=== PATIENT | female | born 1955 | race Caucasian/White ===

== ENCOUNTER → 2017-09-23 | Outpatient (CLI) | payer OTHER ==
[~2017-09-23] MED LIST: SIMV20TA2 PO
--- NOTE | 2017-09-23 14:30 | MAMMOGRAPHY REPORT ---
BILATERAL DIGITAL SCREENING MAMMOGRAM TOMOSYNTHESIS WITH CAD: 09/23/2017 CLINICAL HISTORY: Routine screening examination. TECHNIQUE: Breast tomosynthesis in addition to standard 2D mammography was performed. Current study was also evaluated with a Computer Aided Detection (CAD) system. COMPARISON: Comparison is made to exams dated: 06/04/2016 mammogram, 05/30/2015 mammogram, 02/25/2014 m ammogram, 02/15/2013 mammogram, 02/12/2012 mammogram, and 02/05/2011 mammogram - [facility] nter. BREAST COMPOSITION: The tissue of both breasts is heterogeneously dense, which may obscure small mas ses. FINDINGS: An asymmetry in the superior left breast on the MLO view appears stable on all available pr ior mammograms dating back to at least 2009, therefore likely benign. There are scattered benign-mila earing punctate microcalcifications in the breasts. No new suspicious mass, architectural distortion or cluster of microcalcifications is seen. IMPRESSION: ACR BI-RADS CATEGORY 1: NEGATIVE There is no mammographic evidence of malignancy. A 1 year screening mammogram is recommended. The pa tient will receive written notification of the results. Approximately 10% of breast cancers are not detected with mammography. A negative mammographic report should not delay biopsy if a clinically suggestive mass is present. Jonna Sauceda M.D. ay/:09/23/2017 13:27:48 Staffing Assistant: Mikayla JAEGER)(Jorge L), [facility] letter sent: Normal 1/2 BI-RADS Code: ACR BI-RADS Category 1: Negative
== END | disposition home or self-care (01) ==
LOC: C.MAMM 08:48
PROVIDERS: ATTEND Physician Assistant
DX: Z12.31 Encounter for screening mammogram for malignant neoplasm of breast (principal)

== ENCOUNTER 2020-09-23 00:38 | Inpatient (IN) ==
[2020-09-23] MEDS ORDERED: SODIUM CHLORIDE 0.9% 1000ML 1,000 ML IV STA (00:59)
[2020-09-23] MEDS ORDERED: SODIUM CHLORIDE 0.9% 500 ML IV SCH (01:00)
[2020-09-23 01:20] LABS: Hematocrit (blood only) 36.3 % (37-47); Hemoglobin 12.1 g/dL (12.0-16.0); Immature Granulocytes # (auto) 0.01 K/uL (0.00-0.02); Immature Granulocytes % (auto) 0.2 %; Lymphocytes # (auto) 0.39 K/uL (1.2-3.4); Lymphocytes % (auto) 6.2 %; Mean Corpuscular Hemoglobin 26.8 pg (25-34); Mean Corpuscular Hgb Conc 33.3 g/dL (32-36); Mean Corpuscular Volume 80.5 fL (80-100); Mean Platelet Volume 9.7 fL (7.4-10.4); Monocytes # (auto) 0.22 K/uL (0.11-0.59); Monocytes % (auto) 3.5 %; Neutrophils # (auto) 5.67 K/uL (1.4-6.5); Neutrophils % (auto) 90.1 %; Platelet Count 144 K/uL (130-400); RDW Coefficient of Variation 14.8 % (11.5-14.5); RDW Standard Deviation 43.5 fL (36.4-46.3); Red Blood Count 4.51 M/uL (4.2-5.4); White Blood Count 6.29 K/uL (4.8-10.8)
[2020-09-23 01:31] LABS: INR 1.1 (0.9-1.1); Partial Thromboplastin Ratio 1.1; Partial Thromboplastin Time 31.5 Seconds (21.0-31.0); Prothrombin Time 11.2 Seconds (9.0-12.0)
[2020-09-23 01:39] LABS: Alanine Aminotransferase 28 U/L (12-78); Albumin Level 3.4 gm/dl (3.4-5.0); Aspartate Aminotransferase 33 U/L (15-37); BUN Creatinine Ratio 20.2 (10-20); Blood Urea Nitrogen 24 mg/dl (7-18); Calcium 8.1 mg/dl (8.5-10.1); Carbon Dioxide 27 mmol/L (21-32); Chloride 102 mmol/L (98-107); Creatinine Clr Calc Pharmacy 51.4 ml/min; Est GFR (African American) 54.7; Est GFR (Non-African American) 47.2; Glucose 155 mg/dl (70-99); Magnesium 1.9 mg/dl (1.8-2.4); Potassium 2.8 mmol/L (3.5-5.1); Sodium 135 mmol/L (136-145)
[2020-09-23] MEDS ORDERED: POTASSIUM CHLORIDE / WTR 10 MEQ/100 ML PLCT IV ONE (01:41)
[2020-09-23] MEDS ORDERED: POTASSIUM CHLORIDE CRTAB 20 MEQ TABCR PO STA ×2 (01:41→03:31)
[2020-09-23 01:45] LABS: Albumin Globulin Ratio 0.8 (0.9-2); Alkaline Phosphatase 48 U/L (45-117); Bilirubin,Total 0.8 mg/dl (0.2-1); Globulin 4.1 gm/dl (2.5-4.0); Total Protein 7.5 gm/dl (6.4-8.2); Troponin I < 0.015 ng/ml (0-0.045)
[2020-09-23 01:53] LABS: iSTAT Creatinine 1.1 mg/dl (0.6-1.3); iSTAT Hemoglobin 12.2 g/dl (12.0-16.0); iSTAT Ionized Calcium 1.05 mmol/l (1.12-1.32); iSTAT Potassium 2.8 mmol/L (3.3-5.0)
[2020-09-23] MEDS ORDERED: fentaNYL citrate 100 MCG/2 ML VIAL ONE (02:08)
[2020-09-23] MEDS ORDERED: DEXAMETHASONE SOD INJ 10 MG/ML VIAL IV ONE (02:14)
[2020-09-23] MEDS ORDERED: ONDANSETRON INJ 2 MG/ML 2 ML VIAL IV STA (02:14)
[2020-09-23] MEDS ORDERED: fentaNYL citrate 100 MCG/2 ML VIAL IV STA (02:14)
[2020-09-23 02:29] LABS: Influenza A virus by PCR Negative (Neg); Influenza B virus by PCR Negative (Neg); RSV by PCR Negative (Neg)
[2020-09-23 02:31] LABS: SARS CoV2 RNA(COVID-19) InHosp POSITIVE (Negative)
[2020-09-23] MEDS ORDERED: OPTIRAY 320 125ml IV ONE (03:17)
[2020-09-23] MEDS ORDERED: ALBUTEROL HFA 8 GM INHALER INH STA (03:48)
[2020-09-23] MEDS ORDERED: MAGNESIUM SULFATE / D5W 1 GM/100 ML BAG IV STA (03:48)
[2020-09-23] MEDS ORDERED: AMPICILLIN/SULBACTAM SOD 3,000 MG in 0.9 % SODIUM CHLORIDE 100 ML IV STA (04:14)
--- NOTE | 2020-09-23 04:17 | History & Physical Report ---
Date of Service September 23, 2020 Assessment & Plan (1) Acute hypoxemic respiratory failure due to COVID-19: Multifactorial : Aspiration pneumonia severe COVID-19 pneumonia No overt sepsis for now Syncope possibly from orthostasis from poor p.o. intake Rule out cardiac dysfunction HTN, stable Hypokalemia secondary to poor p.o. intake, home diuretic Rx Hyperglycemia rule out DM Medical telemetry Supplemental O2 Baseline ABG Unasyn, swallow eval, aspiration precautions for aspiration pneumonia Decadron and Remdesivir for severe COVID-19 pneumonia (Patient was counseled regarding potential adverse effects from Remdesivir therapy and provided with patient education sheet. Patient also agreeable to convalescent plasma if warranted.) May need Pulmonary consultation if without improvement. Check orthostatic vitals TTE RE syncope Replace potassium, hold home diuretic for now Check hemoglobin A1c DVT prophylaxis per Lovenox subcu Full code Total critical care time was 40 minutes. Text document was generated using [employer] voice recognition software. It may contain grammatical or spelling errors. Kindly contact undersigned for clarification of any documentation item in question. History of Present Illness Chief Complaint: Syncope, fall, rib pain, shortness of breath Primary Care Provider: Sonyn Causey MD History obtained from patient and records. Medical history significant for hypertension, hyperlipidemia. 2 days history of nausea, fatigue symptoms followed by cough symptoms productive of clear sputum. Cough symptoms noted after food/water intake. Fever and chills, poor appetite. 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 Syncopal episodes today without headache causing patient to fall on her right side. Denies head trauma. Subsequent pleuritic right-sided chest pain with shortness of breath. O2 sats noted to be 80s on room air at the ER. Decadron given for COVID-19 pneumonia. Medical History as above Surgical History : Eye surgery, cholecystectomy, IUD placement Family History : Leukemia, DM Personal/Social history : Non-smoker, no EtOH intake, grocery employee Allergies Allergy/AdvReac Type Severity Reaction Status Date / Time No Known Allergies Allergy Unknown Verified 09/23/20 02:22 Home Medications Medication Instructions Recorded Confirmed Type alendronate 70 mg PO WK 09/23/20 09/23/20 History cholecalciferol (vitamin D3) 50 mcg PO DAILY 09/23/20 09/23/20 History [Vitamin D3] [id number] 1 ea PO DIRECTED PRN 09/23/20 09/23/20 History [Mucinex Sinus-Max D-N (diphen)] hydrochlorothiazide 25 mg PO DAILY 09/23/20 09/23/20 History lisinopril 30 mg PO DAILY 09/23/20 09/23/20 History loratadine [Claritin] 10 mg PO DAILY 09/23/20 09/23/20 History omeprazole 20 mg PO DAILY 09/23/20 09/23/20 History oxybutynin chloride 10 mg PO BID 09/23/20 09/23/20 History simvastatin 40 mg PO DAILY 09/23/20 09/23/20 History Past Med/Surg History Social History Smoking Status: Never smoker Hx Alcohol Use: No Hx Substance Use: No Preferred Language: Cuban Communication Ability: Effective 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 Beliefs That Will Affect Care: None Current Living Situation: Spouse Other Information That Helps Us Care for You: No Feels Safe at Home: Yes Safety Concerns: Feels Safe At This Time Assistive Devices: Denture - Upper, Denture - Lower and Glasses Review of Systems Review of Systems: As per HPI, all 10 systems reviewed, all other ROS negative Physical Exam Physical Exam: GENERAL: wane, ill looking, no respiratory distress SKIN: Normal color, warm HEENT: Bespectacled, pink palpebral conjunctivae, no ptosis, dry buccal mucosa, O2 mask in place NECK : Supple, no tenderness CHEST : Decreased breath sounds, occasional expiratory wheezes, minimal tenderness right chest wall HEART : RRR, no obvious murmurs ABDOMEN: Some distention, nontender EXTREMITIES : No LE swelling/tenderness, no other conspicuous deformities noted NEUROLOGIC : Coherent, no facial asymmetry, no other gross focality Results & Data Results & Data ([facility]) Vital Signs (Past 12 Hours) Vital Signs Temp Pulse Resp BP Pulse Ox 09/23/20 02:30 75 20 136/74 95 09/23/20 02:17 81 24 131/72 93 09/23/20 01:45 86 24 91 09/23/20 01:30 83 20 95 09/23/20 01:21 82 L 09/23/20 01:15 85 22 129/76 92 09/23/20 01:11 37.3 C 85 20 129/76 82 L 09/23/20 01:00 86 21 09/23/20 00:52 83 23 97 09/23/20 00:48 85 24 120/71 91 Laboratory Results Laboratory Results WBC 6.29 K/uL (4.8-10.8) 09/23/20 01:00 RBC 4.51 M/uL (4.2-5.4) 09/23/20 01:00 Hgb 12.1 g/dL (12.0-16.0) 09/23/20 01:00 POC Hgb 12.2 g/dl (12.0-16.0) 09/23/20 01:26 Hct 36.3 % (37-47) L 09/23/20 01:00 POC Hct 36 % (37-47) L 09/23/20 01:26 MCV 80.5 fL (80-100) 09/23/20 01:00 MCH 26.8 pg (25-34) 09/23/20 01:00 MCHC 33.3 g/dL (32-36) 09/23/20 01:00 RDW Std Deviation 43.5 fL (36.4-46.3) 09/23/20 01:00 RDW Coeff of Niru 14.8 % (11.5-14.5) H 09/23/20 01:00 Plt Count 144 K/uL (130-400) 09/23/20 01:00 MPV 9.7 fL (7.4-10.4) 09/23/20 01:00 Immature Gran % (Auto) 0.2 % 09/23/20 01:00 Neut % (Auto) 90.1 % 09/23/20 01:00 Lymph % (Auto) 6.2 % 09/23/20 01:00 Wagoner % (Auto) 3.5 % 09/23/20 01:00 Eos % (Auto) 0.0 % 09/23/20 01:00 Baso % (Auto) 0.0 % 09/23/20 01:00 Neut # (Auto) 5.67 K/uL (1.4-6.5) 09/23/20 01:00 Lymph # (Auto) 0.39 K/uL (1.2-3.4) L 09/23/20 01:00 Wagoner # (Auto) 0.22 K/uL (0.11-0.59) 09/23/20 01:00 Eos # (Auto) 0.00 K/uL (0-0.5) 09/23/20 01:00 Baso # (Auto) 0.00 K/uL (0-0.2) 09/23/20 01:00 Immature Gran # (Auto) 0.01 K/uL (0.00-0.02) 09/23/20 01:00 PT 11.2 Seconds (9.0-12.0) 09/23/20 01:00 INR 1.1 (0.9-1.1) 09/23/20 01:00 APTT 31.5 Seconds (21.0-31.0) H 09/23/20 01:00 PTT Ratio 1.1 09/23/20 01:00 POC Sodium 138 mmol/L (135-144) 09/23/20 01:26 Sodium 135 mmol/L (136-145) L 09/23/20 01:00 POC Potassium 2.8 mmol/L (3.3-5.0) L 09/23/20 01:26 Potassium 2.8 mmol/L (3.5-5.1) L 09/23/20 01:00 POC Chloride 99 mmol/L (101-112) L 09/23/20 01:26 Chloride 102 mmol/L (98-107) 09/23/20 01:00 Carbon Dioxide 27 mmol/L (21-32) 09/23/20 01:00 POC Total CO2 25 mmol/L (24-31) 09/23/20 01:26 Anion Gap 6.0 (3-11) 09/23/20 01:00 POC Anion Gap 17.0 mmol/L (16-25) 09/23/20 01:26 POC BUN 22 mg/dl (7-18) H 09/23/20 01:26 BUN 24 mg/dl (7-18) H 09/23/20 01:00 Creatinine 1.19 mg/dl (0.6-1.2) 09/23/20 01:00 POC Creatinine 1.1 mg/dl (0.6-1.3) 09/23/20 01:26 Est Cr Clr Drug Dosing 51.4 ml/min 09/23/20 01:00 Est GFR ( Amer) 54.7 09/23/20 01:00 Est GFR (Non-Af Amer) 47.2 09/23/20 01:00 BUN/Creatinine Ratio 20.2 (10-20) H 09/23/20 01:00 Glucose 155 mg/dl (70-99) H 09/23/20 01:00 POC Glucose (other) 159 mg/dl (70-99) H 09/23/20 01:26 Lactate 1.7 mmol/L (0.4-2.0) 09/23/20 01:00 Calcium 8.1 mg/dl (8.5-10.1) L 09/23/20 01:00 POC Ioniz Calcium Shante 1.05 mmol/l (1.12-1.32) L 09/23/20 01:26 Magnesium 1.9 mg/dl (1.8-2.4) 09/23/20 01:00 Total Bilirubin 0.8 mg/dl (0.2-1) 09/23/20 01:00 AST 33 U/L (15-37) 09/23/20 01:00 ALT 28 U/L (12-78) 09/23/20 01:00 Alkaline Phosphatase 48 U/L (45-117) 09/23/20 01:00 Troponin I < 0.015 ng/ml (0-0.045) 09/23/20 01:00 Total Protein 7.5 gm/dl (6.4-8.2) 09/23/20 01:00 Albumin 3.4 gm/dl (3.4-5.0) 09/23/20 01:00 Globulin 4.1 gm/dl (2.5-4.0) H 09/23/20 01:00 Albumin/Globulin Ratio 0.8 (0.9-2) L 09/23/20 01:00 COVID-19 Eval Order CovFluRsv at [facility] 09/23/20 01:33 SARS-CoV-2 (PCR) POSITIVE (Negative) A* 09/23/20 01:33 Influenza Type A (PCR) Negative (Neg) 09/23/20 01:33 Influenza Type B (PCR) Negative (Neg) 09/23/20 01:33 RSV (RT-PCR) Negative (Neg) 09/23/20 01:[address] chest initial read: Mild atherosclerotic changes thoracic aorta. No pulmonary embolism. Small hiatal hernia. Airspace opacities in both lower lobes suggesting aspiration or pneumonia. EKG as per my interpretation: Rate 80, NSR, normal axis, no ischemia
[2020-09-23] MEDS ORDERED: POTASSIUM CHLORIDE 40 MEQ in SODIUM CHLORIDE 0.9% 1000ML 1,000 ML IV STA (04:21)
[2020-09-23 04:37] LABS: HCO3 ABG 21 mmol/L (19-24); Oxygen Saturation ABG 94.7 % (90-95); PCO2 ABG 32 mmHg (35-46); PO2 ABG 74 mmHg (80-95); pH ABG 7.43 (7.35-7.45)
[2020-09-23 04:47] LABS: Allen Test POS (Pos)
[2020-09-23] MEDS ORDERED: PROMETHAZINE HCL 12.5 MG in SODIUM CHLORIDE 0.9% 50 ML IV PRN (05:13)
[2020-09-23] MEDS ORDERED: SODIUM CHLORIDE 0.9% 10ML FLUSH IV SCH (05:45)
[2020-09-23] MEDS: POTASSIUM CHLORIDE / WTR 10 MEQ/100 ML PLCT IV SCH ×7 (06:20→15:31)
[2020-09-23] MEDS: REMDESIVIR 200 MG in SODIUM CHLORIDE 0.9% 210 ML IV ONE ×2 (06:20→07:32)
[2020-09-23] MEDS ORDERED: ALBUTEROL HFA 8 GM INHALER INH SCH (07:00)
[2020-09-23 07:27] LABS: Estimated Average Glucose 126 mg/dl
[2020-09-23] MEDS: SODIUM CHLORIDE 0.9% 10ML FLUSH IV SCH (07:37)
[2020-09-23] MEDS ORDERED: POTASSIUM CHLORIDE 40 MEQ in SODIUM CHLORIDE 0.9% 1000ML 1,000 ML IV SCH (08:00)
--- NOTE | 2020-09-23 08:12 | XRay Report ---
XR chest 1V portable CLINICAL HISTORY: low o2 COMPARISON STUDY: Chest radiograph and chest CT September 23, 2020. FINDINGS: Dense left basilar opacity with volume loss has increased. There is also right basilar opac ity. Mild cardiomegaly is noted. There is no evidence for pulmonary edema. No pneumothorax or pleural effusion is noted. IMPRESSION: 1. Increase in dense left basilar opacity with volume loss. This could reflect pneumonia or atelectas is. 2. Persistent right basilar opacity. ACT 112: Negative or not required by law. Electronically signed by: Dean Vincent M.D. 09/23/2020 8:10 AM
[2020-09-23 08:37] LABS: Allen Test Pos (Pos); Base Excess ABG -1.5 mEq/L (-9-1.8); HCO3 ABG 22 mmol/L (19-24); PCO2 ABG 31 mmHg (35-46); PO2 ABG 161 mmHg (80-95); pH ABG 7.46 (7.35-7.45)
--- NOTE | 2020-09-23 08:47 | CT Scan Report ---
CT ANGIOGRAPHY OF THE CHEST, PULMONARY EMBOLUS PROTOCOL CLINICAL HISTORY: Hypoxia. Left-sided chest pain. Evaluate for pulmonary embolus. COMPARISON STUDY: Chest radiograph September 23, 2020 and April 18, 2011. TECHNIQUE: Following IV administration of 119 mL of Optiray-320, helical axial images of the chest we re obtained utilizing the pulmonary embolus protocol. Maximal intensity projections and sagittal and coronal reformats were viewed on an independent 3D workstation. IV contrast was administered withou t complication. Automated exposure control was utilized for the study. A dose lowering technique wa s utilized adhering to the principles of ALARA. CT DOSE: 459.05 mGycm FINDINGS: No pulmonary emboli are identified. There is no thoracic aortic dissection. Mild cardiomeg mireille is noted. Mildly enlarged subcarinal lymph node is noted. There is no pneumothorax. There are tra ce bilateral pleural effusions. Extensive secretions within the left mainstem bronchus and left lower lobe segmental bronchi are noted. There is extensive left lower lobe consolidation. There is moderat e right lower lobe consolidation. Left lung volume loss is noted. Mild interlobular septal thickening within the right lung is noted. There may be relative oligemia of the left lung. Central pulmonary a rteries are mildly dilated. Note is made of mildly displaced fractures of the anterior right third ri b and the posterior right 10th and 11th ribs. These fractures are probably subacute. A small hiatal h ernia is present. Note is made of a partially visualized prominent gastrohepatic ligament lymph node. IMPRESSION: 1. No pulmonary emboli identified. 2. Extensive secretions within the distal left mainstem bronchus and throughout the segmental bronchi of the left lower lobe. Extensive left lower lobe and moderate right lower lobe consolidation. The f indings may reflect aspiration pneumonitis or pneumonia. Left lung volume loss. Trace bilateral pleur al effusions. 3. Mildly displaced fractures of the right third, 10th and 11th ribs, likely subacute. No pneumothora x. 4. Mildly enlarged subcarinal lymph node. This may be reactive however, a follow up chest CT in 3 mon th is recommended. ACT 112: Negative or not required by law. Electronically signed by: Dean Vincent M.D. 09/23/2020 8:45 AM
[2020-09-23] MEDS ORDERED: AMPICILLIN/SULBACTAM CONSULT ACTIVE PRN (09:00)
[2020-09-23] MEDS ORDERED: ALBUTEROL HFA 8 GM INHALER INH PRN (09:13)
--- NOTE | 2020-09-23 09:29 | XRay Report ---
XR chest 1V portable CLINICAL HISTORY: Dyspnea COMPARISON STUDY: Chest radiograph April 18, 2011. FINDINGS: Mild left lung volume loss is noted. There is no pneumothorax. Bibasilar airspace opacity, greater on the left, is noted. Cardiac size is at the upper limits of normal. IMPRESSION: Bibasilar consolidation, greater on the left. The appearance favors pneumonia or aspirat ion. Left lung volume loss. ACT 112: Negative or not required by law. Electronically signed by: Dean Vincent M.D. 09/23/2020 9:27 AM
[2020-09-23 09:42] LABS: Appearance Urine Turbid (Clear); Bacteria Urine Automated 1+ (Negative); Bilirubin Urine Negative (Negative); Blood Urine 1+ (Negative); Color Urine Yellow; Epithelial Cell Urine Auto >30 /lpf (0-5); Glucose Urine UA Negative (Negative); Ketones Urine Negative (Negative); Leukocyte Esterase Urine 2+ (Negative); Nitrite Urine Positive (Negative); Protein Urine 1+ (Negative); Specific Gravity Urine > 1.045 (1.000-1.030); Urobilinogen Urine Negative (Negative); WBC Urine Automated >30 /hpf (0-5)
[2020-09-23] MEDS: ENOXAPARIN INJ 40 MG/0.4 ML SYR SQ SCH (11:01)
[2020-09-23] MEDS: PANTOprazole 40 MG TAB PO SCH (11:01)
[2020-09-23] MEDS: OXYBUTYNIN CHLORIDE XL 5 MG TABCR PO SCH ×2 (11:01→20:29)
[2020-09-23] MEDS: lisinopril 10 MG TAB PO SCH (11:02)
[2020-09-23] MEDS: LORATADINE 10 MG TAB PO SCH (11:02)
[2020-09-23] MEDS: SIMVASTATIN 40 MG TAB PO SCH (11:02)
[2020-09-23] MEDS: AMPICILLIN/SULBACTAM SOD 3,000 MG in 0.9 % SODIUM CHLORIDE 100 ML IV SCH ×2 (11:34→17:46)
--- NOTE | 2020-09-23 12:17 | Pulmonary Consultation ---
Date of Consultation September 23, 2020 Assessment & Plan (1) Acute hypoxemic respiratory failure due to COVID-19: (2) Abnormal CT scan of lung: (3) Hypoxemia: (4) Aspiration into airway: Impression: 65-year-old female without prior history presents with hypoxemic respiratory failure and diffuse bibasilar consolidation and a positive Covid test. Her CT scan demonstrated a significantly patulous esophagus and possible aspiration would be in the differential. Her Covid test was elevated. Recommendations: 1. Hypoxemic respiratory failure: The patient has dense bibasilar dependent consolidations. She is an excellent candidate for proning as this would improve her VQ mismatch. I assisted the patient in proning. We were able to see almost instantaneous improvement in her oxygen saturations up into the high 90% range while on high flow. I would recommend that she stay prone is much as possible and return to the supine position for nursing care and meals. 2. It is unclear how much of this represents Covid pneumonia and how much represents potential atelectasis in aspiration event. Her procalcitonin was elevated so I would agree with antibiotics empirically. She has been initiated on dexamethasone, remdesivir, and consented for convalescent plasma. She is certainly within the window for these interventions based on her time to presentation. We will see how she responds over time. 3. Severely dilated esophagus fluid-filled, aspiration precautions should be put in place. Patient certainly at risk for repeat aspiration given the prone positioning however the benefits would outweigh the risk currently. GI consultation at some point may be reasonable, but would hold off until the patient's respiratory status is significantly improved. We will continue to follow this patient closely. Hopefully prone positioning will result in significant improvement in her VQ mismatch. Do not think she necessitates intensive care unit at this point time but she certainly at risk for deterioration. A total of 45 minutes critical care time managing severe hypoxemic respiratory failure in a patient at risk for clinical deterioration and potential . History of Present Illness Attending Physician: Oliver Cummings MD History of Present Illness Asked by hospitalist to evaluate this patient with progressive hypoxemic respiratory failure, possible pneumonia, Questionable aspiration event, and COVID-19 infection. History is obtained from discussion with the patient as well as review the electronic medical record and discussion with the hospitalist. Patient is a 65-year-old female without prior pulmonary history who was seen in the emergency room this morning. She reports 2 days of nausea and fatigue with clear cough. She does relate some coughing associated with eating and drinking but has never had GI evaluation previously. She does have a history of reflux. 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 She felt weak and had a syncopal episode hitting her right side which resulted in some bruising. In the emergency room she was noted to be significantly hypoxemic. She was initiated on Decadron and transitioned to high flow oxygen therapy and admitted to the hospitalist service. The patient has had an escalation in her oxygen requirement. She is currently on 30 L/min at 70%. She is hemodynamically stable. She is a lifelong non- smoker. Allergies Allergy/AdvReac Type Severity Reaction Status Date / Time No Known Allergies Allergy Unknown Verified 09/23/20 02:22 Home Medications Medication Instructions Recorded Confirmed Type alendronate 70 mg PO WK 09/23/20 09/23/20 History cholecalciferol (vitamin D3) 50 mcg PO DAILY 09/23/20 09/23/20 History [Vitamin D3] [id number] 1 ea PO DIRECTED PRN 09/23/20 09/23/20 History [Mucinex Sinus-Max D-N (diphen)] hydrochlorothiazide 25 mg PO DAILY 09/23/20 09/23/20 History lisinopril 30 mg PO DAILY 09/23/20 09/23/20 History loratadine [Claritin] 10 mg PO DAILY 09/23/20 09/23/20 History omeprazole 20 mg PO DAILY 09/23/20 09/23/20 History oxybutynin chloride 10 mg PO BID 09/23/20 09/23/20 History simvastatin 40 mg PO DAILY 09/23/20 09/23/20 History Patient History Social History Smoking Status: Never smoker Hx Alcohol Use: No Hx Substance Use: No Preferred Language: Cambodian Communication Ability: Effective 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 I have no additions or deletions Physical Exam Constitutional: well developed and + ill appearing Neck: trachea midline, no thyromegaly Respiratory: + respiratory distress and + labored breathing Auscultation: + crackles and + wheezes Cardiovascular: RRR, no murmur, no edema Gastrointestinal (Abdomen): normal bowel sounds, soft, nontender, no hepatosplenomegaly Musculoskeletal: Extremities: extremities normal to inspection Skin: no rashes, warm and dry Neurologic: Nonfocal exam Lymphatic: no cervical lymphadenopathy Results & Data Results & Data ([facility]) Vital Signs (Past 12 Hours) Vital Signs Temp Pulse Pulse Pulse Resp BP BP 09/23/20 10:39 87 20 09/23/20 07:53 36.9 C 84 20 131/71 09/23/20 07:12 83 23 09/23/20 07:10 84 23 09/23/20 05:03 36.8 C 80 24 134/75 09/23/20 04:30 82 20 127/67 09/23/20 04:15 82 20 128/70 09/23/20 04:00 84 19 130/73 09/23/20 03:45 74 22 125/70 09/23/20 03:30 79 24 131/74 09/23/20 03:16 80 23 125/69 09/23/20 02:45 75 21 123/72 09/23/20 02:30 75 20 136/74 09/23/20 02:17 81 24 131/72 09/23/20 01:45 86 24 09/23/20 01:30 83 20 09/23/20 01:21 09/23/20 01:15 85 22 129/76 09/23/20 01:11 37.3 C 85 20 129/76 09/23/20 01:00 86 21 09/23/20 00:52 83 23 09/23/20 00:48 85 24 120/71 Pulse Ox 09/23/20 10:39 91 09/23/20 07:53 91 09/23/20 07:12 94 09/23/20 07:10 90 09/23/20 05:03 95 09/23/20 04:30 91 09/23/20 04:15 93 09/23/20 04:00 94 09/23/20 03:45 97 09/23/20 03:30 95 09/23/20 03:16 92 09/23/20 02:45 97 09/23/20 02:30 95 09/23/20 02:17 93 09/23/20 01:45 91 09/23/20 01:30 95 09/23/20 01:21 82 L 09/23/20 01:15 92 09/23/20 01:11 82 L 09/23/20 01:00 09/23/20 00:52 97 09/23/20 00:48 91 Blood gas showed a pH of 7.46 PCO2 31 and PO2 of 161 Procalcitonin 0.99 Troponin negative Laboratory Results 09/23/20 01:00 09/23/20 01:00 Diagnostic Findings Imaging was independently reviewed. Chest x-ray from 09/23/2020 at 732 was reviewed and compared to prior chest x-ray from 1:00 in the morning. There are bibasilar infiltrates more prominent on the left than the right. CT of the chest from 09/23/2019 demonstrated dense basilar subpleural dependent consolidation. The esophagus was significantly patulous and fluid-filled. PG Care Time/CCT Total # of Minutes Spent Total Time Spent with Patient: Total time spent is greater than 50% in coordination of care (as documented) at patient's floor/unit and/or counseling patient: Coding Level of Care Code None Diagnoses Acute hypoxemic respiratory failure due to COVID-19 U07.1; J96.[address] scan of lung R91.8 Hypoxemia R09.02 Aspiration into airway T17.908A Time Spent (min) 45 Comment 45 minutes critical care time spent managing and treating patient. Please code [id number]
[2020-09-23 13:02] LABS: BUN Creatinine Ratio 19.1 (10-20); Calcium 7.5 mg/dl (8.5-10.1); Creatinine Clr Calc Pharmacy 55.7 ml/min; Est GFR (African American) 62.2; Est GFR (Non-African American) 53.7
[2020-09-23] MEDS: traMADol HCL 50 MG TABLET PO PRN ×2 (14:06→22:02)
[2020-09-23] MEDS ORDERED: Nursing to Pharmacy Communication SCH (15:45)
--- NOTE | 2020-09-23 15:46 | Communication Note ---
Date of Service: September 23, 2020 Chart reviewed Patient seen examined at the bedside, not in distress, on high flow O2, FiO2 35% States her breathing is improved compared to earlier this morning, but still having some mild effort when speaking Has intermittent cough, with nasal drainage Chest pain No abdominal pain, nausea vomiting Appetite improving Acute hypoxic respiratory failure secondary to Covid pneumonia and aspiration pneumonia Continue remdesivir and Decadron, patient would like to think more about plasma transfusion Continue Unasyn Continue high flow O2, prone positioning Appreciate Dr. Fernandes's recommendations Oliver Cummings MD
[2020-09-23] MEDS ORDERED: ACETAMINOPHEN 325 MG TAB PO ONE (17:50)
--- NOTE | 2020-09-23 22:08 | Electrocardiogram Report ---
Test Reason : Blood Pressure : / mmHG Vent. Rate : 082 BPM Atrial Rate : 082 BPM P-R Int : 176 ms QRS Dur : 080 ms QT Int : 390 ms P-R-T Axes : 049 007 051 degrees QTc Int : 455 ms Normal sinus rhythm Inferior infarct , age undetermined Abnormal ECG When compared with ECG of 18-APR-2011 15:12, Inferior infarct is now Present Confirmed by Carlton Stewart ([id number]) on 09/23/2020 10:08:02 PM Referred By: REFERRED SELF Confirmed By:Carlton Stewart
[2020-09-24] MEDS: AMPICILLIN/SULBACTAM SOD 3,000 MG in 0.9 % SODIUM CHLORIDE 100 ML IV SCH ×5 (00:08→23:13)
--- NOTE | 2020-09-24 04:22 | Emergency Department Note ---
Impression & Plan Acute hypoxemic respiratory failure due to COVID-19 ED Provider Note NAME: MICHAEL MURILLO AGE: 65 SEX: F ARRIVES VIA: Ambulance INFORMANT: Patient, ED PROVIDER(S): Karla Conner MD CHIEF COMPLAINT: Fatigue, syncope x4 episodes, right rib pain PLAN: Disposition: Inpatient Condition: Fair Referral: Hospitalist MEDICAL DECISION MAKING: This patient was evaluated and appeared to be in some discomfort. IV access was obtained and laboratory work was drawn. Patient was placed on the stationary equipment mechanic and noted to be in a normal sinus rhythm at 85 bpm. Patient's initial pulse ox at triage is 91% on room air however upon placing her on the stationary equipment mechanic in the room, her pulse ox on room air was 82%. Patient was placed on nasal cannula oxygen and quickly transition to an oxygen mask. Patient was medicated with 6 mg of IV dexamethasone, hydrated with IV normal saline solution. She was given IV fentanyl and IV Zofran for her pain and nausea. Patient is noted to have hypokalemia and p.o. potassium was ordered however the patient refused stating she was unable to swallow the pills. A K rider was ordered. Patient's Covid swab is positive. Chest x-ray is concerning for infiltrative changes, chest CT was ordered with concern of a rib fracture as well as PE. CT is negative for PE but does reveal evidence of extensive secretions in the bronchus concerning for aspiration, there is also evidence of infiltrative change consistent with a pneumonitis or pneumonia. Patient is also noted to have 3 likely subacute rib fractures. Patient's case was discussed with the hospitalist service for admission and further management. Patient is aware of the plan and agrees. Triage Nursing notes reviewed. Prior medical records reviewed Differential diagnosis: Reactive airway disease, pneumonia, pneumothorax, COPD, CHF, infections, cardiac ischemia, pulmonary embolism, musculoskeletal, gastrointestinal, as well as other pathologies. ER treatment provided: Supplemental oxygen IV fluids IV dexamethasone IV Zofran IV fentanyl P.o. potassium-refused IV potassium Diagnostics interpreted by me: ECG: Normal sinus rhythm at 82 bpm. Q waves noted in the inferior leads, nonspecific ST abnormality, no PVC, no PAC, QTC is 455. Cardiac Monitoring: An order for cardiac monitoring was placed and the patient is noted to be in a normal sinus rhythm at 83 bpm. Laboratory studies: See below Imaging studies: XR chest 1V portable CLINICAL HISTORY: Dyspnea COMPARISON STUDY: Chest radiograph April 18, 2011. FINDINGS: Mild left lung volume loss is noted. There is no pneumothorax. Bibasilar airspace opacity, greater on the left, is noted. Cardiac size is at the upper limits of normal. IMPRESSION: Bibasilar consolidation, greater on the left. The appearance favors pneumonia or aspiration. Left lung volume loss. ACT 112: Negative or not required by law. Electronically signed by: Dean Vincent M.D. 09/23/2020 9:27 AM Dictated: 09/23/20925Transcribed: 09/23/20925 CT ANGIOGRAPHY OF THE CHEST, PULMONARY EMBOLUS PROTOCOL CLINICAL HISTORY: Hypoxia. Left-sided chest pain. Evaluate for pulmonary embolus. COMPARISON STUDY: Chest radiograph September 23, 2020 and April 18, 2011. TECHNIQUE: Following IV administration of 119 mL of Optiray-320, helical axial images of the chest were obtained utilizing the pulmonary embolus protocol. Maximal intensity projections and sagittal and coronal reformats were viewed on an independent 3D workstation. IV contrast was administered without complication. Automated exposure control was utilized for the study. A dose lowering technique was utilized adhering to the principles of ALARA. CT DOSE: 459.05 mGycm FINDINGS: No pulmonary emboli are identified. There is no thoracic aortic dissection. Mild cardiomegaly is noted. Mildly enlarged subcarinal lymph node is noted. There is no pneumothorax. There are trace bilateral pleural effusions. Extensive secretions within the left mainstem bronchus and left lower lobe segmental bronchi are noted. There is extensive left lower lobe consolidation. There is moderate right lower lobe consolidation. Left lung volume loss is noted. Mild interlobular septal thickening within the right lung is noted. There may be relative oligemia of the left lung. Central pulmonary arteries are mildly dilated. Note is made of mildly displaced fractures of the anterior right third rib and the posterior right 10th and 11th ribs. These fractures are probably subacute. A small hiatal hernia is present. Note is made of a partially visualized prominent gastrohepatic ligament lymph node. IMPRESSION: 1. No pulmonary emboli identified. 2. Extensive secretions within the distal left mainstem bronchus and throughout the segmental bronchi of the left lower lobe. Extensive left lower lobe and moderate right lower lobe consolidation. The findings may reflect aspiration pneumonitis or pneumonia. Left lung volume loss. Trace bilateral pleural effusions. 3. Mildly displaced fractures of the right third, 10th and 11th ribs, likely subacute. No pneumothorax. 4. Mildly enlarged subcarinal lymph node. This may be reactive however, a follow up chest CT in 3 months is recommended. ACT 112: Negative or not required by law. Electronically signed by: Dean Vincent M.D. 09/23/2020 8:45 AM Dictated: 09/23/20 0831Transcribed: 09/23/20 0839 Consultation(s): Hospitalist HPI: 65/F arrives for evaluation of fatigue, syncope x4 and right rib pain. Patient states she and her have been dealing with a cold for the last several days. She has noted a sore throat, runny nose, shortness of breath, body aches. Today the patient states that she had multiple syncopal episodes, falling to the ground. She notes pain to the right ribs which she attributes to 1 of these falls. She denies any significant shortness of breath although does admit to a dry cough. She is nauseated but denies any vomiting. The patient has felt chilled but denies any significant fevers. She states her is suffering similar symptoms at home. ROS: See above HPI for pertinent positives & negatives. A total of 10 systems reviewed and were otherwise negative. PAST MEDICAL HISTORY:See Below PAST SURGICAL HISTORY:See Below FAMILY HISTORY:See Below SOCIAL HISTORY:See Below HOME MEDICATIONS:See Below ALLERGIES:No known drug allergies PHYSICAL EXAMINATION: Vital signs reviewed. Noted to be hypoxic on room air General: Somewhat ill-appearing 65 yo female, in no significant distress. HEENT: No scleral icterus, PERRLA, neck supple. Atraumatic. Cardiovascular: Regular rate and rhythm, no extra sounds. Pulmonary: Coarse breath sounds bilaterally, increased work of breathing. On nasal cannula-> oxy mask oxygen Abdomen: Soft, nontender, nondistended, positive bowel sounds. Musculoskeletal: Atraumatic, no peripheral edema. Neurologic: Patient awake alert and oriented x 3 Skin: Warm, dry, no rash I have personally spent greater than 40 minutes of critical care time in the d irect management of this patient. This includes bedside care, interpretation of diagnostic studies, and testing, discussion with consultants, patient, and family members, and other required patient management activities. This 40 minutes is in excess of all separately billable procedures. Karla Conner MD Past Med/Surg History Medical History Dyslipidemia GERD (gastroesophageal reflux disease) Hypertension Social History Smoking Status: Never smoker Hx Alcohol Use: No Hx Substance Use: No Preferred Language: Malawian Communication Ability: Effective Scrum Coach Required: No Beliefs That Will Affect Care: None Current Living Situation: Spouse Other Information That Helps Us Care for You: No Feels Safe at Home: Yes Safety Concerns: Feels Safe At This Time Assistive Devices: Oxygen - Continuous Allergies Allergies Allergy/AdvReac Type Severity Reaction Status Date / Time No Known Allergies Allergy Unknown Verified 09/23/20 02:22 Home Meds Home Medications Medication Instructions Recorded Confirmed alendronate 70 mg PO WK 09/23/20 09/23/20 cholecalciferol (vitamin D3) 50 mcg PO DAILY 09/23/20 09/23/20 [Vitamin D3] [id number] 1 ea PO DIRECTED PRN 09/23/20 09/23/20 [Mucinex Sinus-Max D-N (diphen)] hydrochlorothiazide 25 mg PO DAILY 09/23/20 09/23/20 lisinopril 30 mg PO DAILY 09/23/20 09/23/20 loratadine [Claritin] 10 mg PO DAILY 09/23/20 09/23/20 omeprazole 20 mg PO DAILY 09/23/20 09/23/20 oxybutynin chloride 10 mg PO BID 09/23/20 09/23/20 simvastatin 40 mg PO DAILY 09/23/20 09/23/20 Results & Data (ED) Vital Signs Vital Signs - 24 hr 09/23/20 04:15 Pulse Rate 82 Pulse Rate from SpO2 Sensor 83 Respiratory Rate 20 Blood Pressure 128/70 Blood Pressure Mean 80 Pulse Oximetry 93 Oxygen Delivery Method Oxymask Oxygen Flow Rate 10 Laboratory Data Result diagrams: 09/23/20 01:00 09/23/20 12:10 Lab Results 09/23/20 09/23/20 09/23/20 Range/Units 01:00 01:00 01:00 WBC 6.29 (4.8-10.8) K/uL RBC 4.51 (4.2-5.4) M/uL Hgb 12.1 (12.0-16.0) g/dL POC Hgb (12.0-16.0) g/dl Hct 36.3 L (37-47) % POC Hct (37-47) % MCV 80.5 (80-100) fL MCH 26.8 (25-34) pg MCHC 33.3 (32-36) g/dL RDW Std Deviation 43.5 (36.4-46.3) fL RDW Coeff of Niru 14.8 H (11.5-14.5) % Plt Count 144 (130-400) K/uL MPV 9.7 (7.4-10.4) fL Immature Gran % (Auto) 0.2 % Neut % (Auto) 90.1 % Lymph % (Auto) 6.2 % Platte % (Auto) 3.5 % Eos % (Auto) 0.0 % Baso % (Auto) 0.0 % Neut # (Auto) 5.67 (1.4-6.5) K/uL Lymph # (Auto) 0.39 L (1.2-3.4) K/uL Platte # (Auto) 0.22 (0.11-0.59) K/uL Eos # (Auto) 0.00 (0-0.5) K/uL Baso # (Auto) 0.00 (0-0.2) K/uL Immature Gran # (Auto) 0.01 (0.00-0.02) K/uL PT 11.2 (9.0-12.0) Seconds INR 1.1 (0.9-1.1) APTT 31.5 H (21.0-31.0) Seconds PTT Ratio 1.1 ABG pH (7.35-7.45) ABG pCO2 (35-46) mmHg ABG pO2 (80-95) mmHg ABG HCO3 (19-24) mmol/L ABG O2 Saturation (90-95) % ABG Base Excess (-9-1.8) mEq/L Mil Test (Pos) Barometric Pressure mm/Hg Oxygen Given POC Sodium (135-144) mmol/L Sodium 135 L (136-145) mmol/L POC Potassium (3.3-5.0) mmol/L Potassium 2.8 L (3.5-5.1) mmol/L POC Chloride (101-112) mmol/L Chloride 102 (98-107) mmol/L Carbon Dioxide 27 (21-32) mmol/L POC Total CO2 (24-31) mmol/L Anion Gap 6.0 (3-11) POC Anion Gap (16-25) mmol/L POC BUN (7-18) mg/dl BUN 24 H (7-18) mg/dl Creatinine 1.19 (0.6-1.2) mg/dl POC Creatinine (0.6-1.3) mg/dl Est Cr Clr Drug Dosing 51.4 ml/min Est GFR ( Amer) 54.7 Est GFR (Non-Af Amer) 47.2 BUN/Creatinine Ratio 20.2 H (10-20) Glucose 155 H (70-99) mg/dl POC Glucose (other) (70-99) mg/dl Estimat Average Glucose mg/dl Hemoglobin A1c (4.5-5.6) % Lactate (0.4-2.0) mmol/L Calcium 8.1 L (8.5-10.1) mg/dl POC Ioniz Calcium Shante (1.12-1.32) mmol/l Magnesium 1.9 (1.8-2.4) mg/dl Total Bilirubin 0.8 (0.2-1) mg/dl AST 33 (15-37) U/L ALT 28 (12-78) U/L Alkaline Phosphatase 48 (45-117) U/L Troponin I < 0.015 (0-0.045) ng/ml Total Protein 7.5 (6.4-8.2) gm/dl Albumin 3.4 (3.4-5.0) gm/dl Globulin 4.1 H (2.5-4.0) gm/dl Albumin/Globulin Ratio 0.8 L (0.9-2) COVID-19 Eval Order SARS-CoV-2 (PCR) (Negative) Influenza Type A (PCR) (Neg) Influenza Type B (PCR) (Neg) RSV (RT-PCR) (Neg) Blood Type Antibody Screen 09/23/20 09/23/20 09/23/20 Range/Units 01:00 01:26 01:33 WBC (4.8-10.8) K/uL RBC (4.2-5.4) M/uL Hgb (12.0-16.0) g/dL POC Hgb 12.2 (12.0-16.0) g/dl Hct (37-47) % POC Hct 36 L (37-47) % MCV (80-100) fL MCH (25-34) pg MCHC (32-36) g/dL RDW Std Deviation (36.4-46.3) fL RDW Coeff of Niru (11.5-14.5) % Plt Count (130-400) K/uL MPV (7.4-10.4) fL Immature Gran % (Auto) % Neut % (Auto) % Lymph % (Auto) % Platte % (Auto) % Eos % (Auto) % Baso % (Auto) % Neut # (Auto) (1.4-6.5) K/uL Lymph # (Auto) (1.2-3.4) K/uL Platte # (Auto) (0.11-0.59) K/uL Eos # (Auto) (0-0.5) K/uL Baso # (Auto) (0-0.2) K/uL Immature Gran # (Auto) (0.00-0.02) K/uL PT (9.0-12.0) Seconds INR (0.9-1.1) APTT (21.0-31.0) Seconds PTT Ratio ABG pH (7.35-7.45) ABG pCO2 (35-46) mmHg ABG pO2 (80-95) mmHg ABG HCO3 (19-24) mmol/L ABG O2 Saturation (90-95) % ABG Base Excess (-9-1.8) mEq/L Mil Test (Pos) Barometric Pressure mm/Hg Oxygen Given POC Sodium 138 (135-144) mmol/L Sodium (136-145) mmol/L POC Potassium 2.8 L (3.3-5.0) mmol/L Potassium (3.5-5.1) mmol/L POC Chloride 99 L (101-112) mmol/L Chloride (98-107) mmol/L Carbon Dioxide (21-32) mmol/L POC Total CO2 25 (24-31) mmol/L Anion Gap (3-11) POC Anion Gap 17.0 (16-25) mmol/L POC BUN 22 H (7-18) mg/dl BUN (7-18) mg/dl Creatinine (0.6-1.2) mg/dl POC Creatinine 1.1 (0.6-1.3) mg/dl Est Cr Clr Drug Dosing ml/min Est GFR ( Amer) Est GFR (Non-Af Amer) BUN/Creatinine Ratio (10-20) Glucose (70-99) mg/dl POC Glucose (other) 159 H (70-99) mg/dl Estimat Average Glucose mg/dl Hemoglobin A1c (4.5-5.6) % Lactate 1.7 (0.4-2.0) mmol/L Calcium (8.5-10.1) mg/dl POC Ioniz Calcium Shante 1.05 L (1.12-1.32) mmol/l Magnesium (1.8-2.4) mg/dl Total Bilirubin (0.2-1) mg/dl AST (15-37) U/L ALT (12-78) U/L Alkaline Phosphatase (45-117) U/L Troponin I (0-0.045) ng/ml Total Protein (6.4-8.2) gm/dl Albumin (3.4-5.0) gm/dl Globulin (2.5-4.0) gm/dl Albumin/Globulin Ratio (0.9-2) COVID-19 Eval Order CovFluRsv at [facility] SARS-CoV-2 (PCR) (Negative) Influenza Type A (PCR) (Neg) Influenza Type B (PCR) (Neg) RSV (RT-PCR) (Neg) Blood Type Antibody Screen 09/23/20 09/23/20 09/23/20 Range/Units 01:33 04:13 04:13 WBC (4.8-10.8) K/uL RBC (4.2-5.4) M/uL Hgb (12.0-16.0) g/dL POC Hgb (12.0-16.0) g/dl Hct (37-47) % POC Hct (37-47) % MCV (80-100) fL MCH (25-34) pg MCHC (32-36) g/dL RDW Std Deviation (36.4-46.3) fL RDW Coeff of Niru (11.5-14.5) % Plt Count (130-400) K/uL MPV (7.4-10.4) fL Immature Gran % (Auto) % Neut % (Auto) % Lymph % (Auto) % [place] % (Auto) % Eos % (Auto) % Baso % (Auto) % Neut # (Auto) (1.4-6.5) K/uL Lymph # (Auto) (1.2-3.4) K/uL [place]atte # (Auto) (0.11-0.59) K/uL Eos # (Auto) (0-0.5) K/uL Baso # (Auto) (0-0.2) K/uL Immature Gran # (Auto) (0.00-0.02) K/uL PT (9.0-12.0) Seconds INR (0.9-1.1) APTT (21.0-31.0) Seconds PTT Ratio ABG pH 7.43 (7.35-7.45) ABG pCO2 32 L (35-46) mmHg ABG pO2 74 L (80-95) mmHg ABG HCO3 21 (19-24) mmol/L ABG O2 Saturation 94.7 (90-95) % ABG Base Excess -3.0 (-9-1.8) mEq/L Mil Test POS (Pos) Barometric Pressure 724.4 mm/Hg Oxygen Given 10 L POC Sodium (135-144) mmol/L Sodium (136-145) mmol/L POC Potassium (3.3-5.0) mmol/L Potassium (3.5-5.1) mmol/L POC Chloride (101-112) mmol/L Chloride (98-107) mmol/L Carbon Dioxide (21-32) mmol/L POC Total CO2 (24-31) mmol/L Anion Gap (3-11) POC Anion Gap (16-25) mmol/L POC BUN (7-18) mg/dl BUN (7-18) mg/dl Creatinine (0.6-1.2) mg/dl POC Creatinine (0.6-1.3) mg/dl Est Cr Clr Drug Dosing ml/min Est GFR ( Amer) Est GFR (Non-Af Amer) BUN/Creatinine Ratio (10-20) Glucose (70-99) mg/dl POC Glucose (other) (70-99) mg/dl Estimat Average Glucose mg/dl Hemoglobin A1c (4.5-5.6) % Lactate (0.4-2.0) mmol/L Calcium (8.5-10.1) mg/dl POC Ioniz Calcium Shante (1.12-1.32) mmol/l Magnesium (1.8-2.4) mg/dl Total Bilirubin (0.2-1) mg/dl AST (15-37) U/L ALT (12-78) U/L Alkaline Phosphatase (45-117) U/L Troponin I (0-0.045) ng/ml Total Protein (6.4-8.2) gm/dl Albumin (3.4-5.0) gm/dl Globulin (2.5-4.0) gm/dl Albumin/Globulin Ratio (0.9-2) COVID-19 Eval Order SARS-CoV-2 (PCR) POSITIVE A* (Negative) Influenza Type A (PCR) Negative (Neg) Influenza Type B (PCR) Negative (Neg) RSV (RT-PCR) Negative (Neg) Blood Type O Positive Antibody Screen NEGATIVE 09/23/20 Range/Units 04:13 WBC (4.8-10.8) K/uL RBC (4.2-5.4) M/uL Hgb (12.0-16.0) g/dL POC Hgb (12.0-16.0) g/dl Hct (37-47) % POC Hct (37-47) % MCV (80-100) fL MCH (25-34) pg MCHC (32-36) g/dL RDW Std Deviation (36.4-46.3) fL RDW Coeff of Niur (11.5-14.5) % Plt Count (130-400) K/uL MPV (7.4-10.4) fL Immature Gran % (Auto) % Neut % (Auto) % Lymph % (Auto) % [place]atte % (Auto) % Eos % (Auto) % Baso % (Auto) % Neut # (Auto) (1.4-6.5) K/uL Lymph # (Auto) (1.2-3.4) K/uL [place]atte # (Auto) (0.11-0.59) K/uL Eos # (Auto) (0-0.5) K/uL Baso # (Auto) (0-0.2) K/uL Immature Gran # (Auto) (0.00-0.02) K/uL PT (9.0-12.0) Seconds INR (0.9-1.1) APTT (21.0-31.0) Seconds PTT Ratio ABG pH (7.35-7.45) ABG pCO2 (35-46) mmHg ABG pO2 (80-95) mmHg ABG HCO3 (19-24) mmol/L ABG O2 Saturation (90-95) % ABG Base Excess (-9-1.8) mEq/L Mil Test (Pos) Barometric Pressure mm/Hg Oxygen Given POC Sodium (135-144) mmol/L Sodium (136-145) mmol/L POC Potassium (3.3-5.0) mmol/L Potassium (3.5-5.1) mmol/L POC Chloride (101-112) mmol/L Chloride (98-107) mmol/L Carbon Dioxide (21-32) mmol/L POC Total CO2 (24-31) mmol/L Anion Gap (3-11) POC Anion Gap (16-25) mmol/L POC BUN (7-18) mg/dl BUN (7-18) mg/dl Creatinine (0.6-1.2) mg/dl POC Creatinine (0.6-1.3) mg/dl Est Cr Clr Drug Dosing ml/min Est GFR ( Amer) Est GFR (Non-Af Amer) BUN/Creatinine Ratio (10-20) Glucose (70-99) mg/dl POC Glucose (other) (70-99) mg/dl Estimat Average Glucose 126 mg/dl Hemoglobin A1c 6.0 H (4.5-5.6) % Lactate (0.4-2.0) mmol/L Calcium (8.5-10.1) mg/dl POC Ioniz Calcium Shante (1.12-1.32) mmol/l Magnesium (1.8-2.4) mg/dl Total Bilirubin (0.2-1) mg/dl AST (15-37) U/L ALT (12-78) U/L Alkaline Phosphatase (45-117) U/L Troponin I (0-0.045) ng/ml Total Protein (6.4-8.2) gm/dl Albumin (3.4-5.0) gm/dl Globulin (2.5-4.0) gm/dl Albumin/Globulin Ratio (0.9-2) COVID-19 Eval Order SARS-CoV-2 (PCR) (Negative) Influenza Type A (PCR) (Neg) Influenza Type B (PCR) (Neg) RSV (RT-PCR) (Neg) Blood Type Antibody Screen Administered Medications Enoxaparin Sodium (Enoxaparin Inj 40 Mg/0.4 Ml Syr) 40 mg SQ QAM [facility] Stop: 10/23/20 08:59 Last Admin: 09/23/20 11:01 Dose: 40 mg Documented by: [id number] Ampicillin Sodium/Sulbactam Sodium 3,000 mg/ Sodium Chloride 108 mls @ 216 mls/hr IV Q6H [facility]; Protocol Stop: 09/30/20 11:59 Last Infusion: 09/24/20 00:38 Dose: 0 mls/hr Documented by: [id number] Admin: 09/24/20 00:08 Dose: 216 mls/hr Documented by: [id number] Infusion: 09/23/20 18:42 Dose: 0 mls/hr Documented by: [id number] Admin: 09/23/20 17:46 Dose: 216 mls/hr Documented by: [id number] Infusion: 09/23/20 12:07 Dose: 0 mls/hr Documented by: [id number] Admin: 09/23/20 11:34 Dose: 216 mls/hr Documented by: [id number] Lisinopril (Lisinopril 10 Mg Tab) 30 mg PO DAILY [facility] Stop: 10/23/20 08:59 Last Admin: 09/23/20 11:02 Dose: 30 mg Documented by: [id number] Loratadine (Loratadine 10 Mg Tab) 10 mg PO DAILY [facility] Stop: 10/23/20 08:59 Last Admin: 09/23/20 11:02 Dose: 10 mg Documented by: [id number] Oxybutynin Chloride (Oxybutynin Chloride Xl 5 Mg Tabcr) 10 mg PO BID [facility] Stop: 10/23/20 08:59 Last Admin: 09/23/20 20:29 Dose: 10 mg Documented by: [id number] Admin: 09/23/20 11:01 Dose: 10 mg Documented by: [id number] Pantoprazole Sodium (Pantoprazole 40 Mg Tab) 40 mg PO DAILY [facility] Stop: 10/23/20 08:59 Last Admin: 09/23/20 11:01 Dose: 40 mg Documented by: [id number] Simvastatin (Simvastatin 40 Mg Tab) 40 mg PO DAILY [facility] Stop: 10/23/20 08:59 Last Admin: 09/23/20 11:02 Dose: 40 mg Documented by: [id number] Sodium Chloride (Sodium Chloride 0.9% 10ml Flush) 30 ml IV Q24H [facility] Stop: 09/27/20 12:01 Last Admin: 09/23/20 07:37 Dose: 30 ml Documented by: [id number] Tramadol HCl (Tramadol Hcl 50 Mg Tablet) 25 - 50 mg PO Q4H PRN PRN Reason: Pain Stop: 10/23/20 05:44 Last Admin: 09/23/20 22:02 Dose: 50 mg Documented by: [id number] Admin: 09/23/20 14:06 Dose: 50 mg Documented by: [id number] Discontinued Medications Albuterol (Albuterol Hfa 8 Gm Inhaler) 2 puffs INH NOW STA Stop: 09/23/20 03:49 Last Admin: 09/23/20 04:02 Dose: 2 puffs Documented by: [id number] Albuterol (Albuterol Hfa 8 Gm Inhaler) 2 puffs INH QIDR [facility] Stop: 10/23/20 06:59 Last Admin: 09/23/20 07:11 Dose: 2 puffs Documented by: [id number] Dexamethasone (Dexamethasone Sod Inj 10 Mg/Ml Vial) 6 mg IV NOW ONE Stop: 09/23/20 02:15 Last Admin: 09/23/20 03:17 Dose: 6 mg Documented by: [id number] Fentanyl Citrate (Fentanyl Citrate 100 Mcg/2 Ml Vial) Confirm Administered Dose 100 mcg .ROUTE .STK-MED ONE Stop: 09/23/20 02:09 Last Admin: 09/23/20 02:22 Dose: Not Given Documented by: [id number] Fentanyl Citrate (Fentanyl Citrate 100 Mcg/2 Ml Vial) 50 mcg IV NOW STA Stop: 09/23/20 02:15 Last Admin: 09/23/20 02:22 Dose: 50 mcg Documented by: [id number] Sodium Chloride (Nss) 500 mls @ 999 mls/hr IV .Q31M [facility] Stop: 09/23/20 01:30 Last Infusion: 09/23/20 02:24 Dose: 0 mls/hr Documented by: [id number] Admin: 09/23/20 01:00 Dose: 999 mls/hr Documented by: [id number] Sodium Chloride (Nss 1000ml) 1,000 mls @ 125 mls/hr IV .Q8H STA Stop: 09/23/20 08:58 Last Infusion: 09/23/20 05:00 Dose: 0 mls/hr Documented by: [id number] Admin: 09/23/20 02:22 Dose: 125 mls/hr Documented by: [id number] Potassium Chloride (K Cain / Wtr) 10 meq in 100 mls @ 100 mls/hr IV ONE ONE Stop: 09/23/20 02:40 Last Infusion: 09/23/20 03:25 Dose: 0 mls/hr Documented by: [id number] Admin: 09/23/20 02:22 Dose: 100 mls/hr Documented by: [id number] Magnesium Sulfate/Dextrose (Magnesium Sulfate / D5w) 1 gm in 100 mls @ 50 mls/hr IV ONE STA Stop: 09/23/20 05:47 Last Infusion: 09/23/20 05:50 Dose: 0 mls/hr Documented by: [id number] Admin: 09/23/20 03:50 Dose: 50 mls/hr Documented by: [id number] Ampicillin Sodium/Sulbactam Sodium 3,000 mg/ Sodium Chloride 108 mls @ 200 mls/hr IV NOW STA Stop: 09/23/20 04:46 Last Infusion: 09/23/20 05:57 Dose: 0 mls/hr Documented by: [id number] Admin: 09/23/20 05:24 Dose: 200 mls/hr Documented by: [id number] Potassium Chloride 40 meq/ (Sodium Chloride) 1,020 mls @ 50 mls/hr IV .[id number] STA Stop: 09/24/20 00:44 Last Infusion: 09/23/20 07:36 Dose: 0 mls/hr Documented by: [id number] Admin: 09/23/20 05:23 Dose: 50 mls/hr Documented by: [id number] Remdesivir 200 mg/ Sodium (Chloride) 250 mls @ 125 mls/hr IV ONE ONE; Protocol Stop: 09/23/20 07:59 Last Infusion: 09/23/20 09:04 Dose: 0 mls/hr Documented by: [id number] Admin: 09/23/20 07:32 Dose: Not Given Documented by: [id number] Admin: 09/23/20 06:20 Dose: 125 mls/hr Documented by: [id number] Potassium Chloride (K Cain / Wtr) 10 meq in 100 mls @ 100 mls/hr IV Q1H [facility] Stop: 09/23/20 11:59 Last Admin: 09/23/20 15:31 Dose: Not Given Documented by: [id number] Infusion: 09/23/20 15:30 Dose: 0 mls/hr Documented by: [id number] Admin: 09/23/20 14:04 Dose: 75 mls/hr Documented by: [id number] Infusion: 09/23/20 13:38 Dose: 75 mls/hr Documented by: [id number] Admin: 09/23/20 12:18 Dose: 75 mls/hr Documented by: [id number] Infusion: 09/23/20 12:18 Dose: 75 mls/hr Documented by: [id number] Admin: 09/23/20 11:13 Dose: 75 mls/hr Documented by: [id number] Infusion: 09/23/20 11:13 Dose: 75 mls/hr Documented by: [id number] Admin: 09/23/20 10:26 Dose: 75 mls/hr Documented by: [id number] Infusion: 09/23/20 09:50 Dose: 75 mls/hr Documented by: [id number] Admin: 09/23/20 08:30 Dose: 75 mls/hr Documented by: [id number] Infusion: 09/23/20 07:25 Dose: 75 mls/hr Documented by: [id number] Infusion: 09/23/20 07:05 Dose: 75 mls/hr Documented by: [id number] Admin: 09/23/20 06:20 Dose: 100 mls/hr Documented by: [id number] Potassium Chloride 40 meq/ (Sodium Chloride) 1,020 mls @ 50 mls/hr IV .[id number] GINO Stop: 10/23/20 07:59 Last Infusion: 09/23/20 15:32 Dose: 0 mls/hr Documented by: [id number] Admin: 09/23/20 07:33 Dose: 50 mls/hr Documented by: [id number] Ioversol (Optiray 320 125ml) 119 ml IV ONCE ONE Stop: 09/23/20 03:18 Last Admin: 09/23/20 03:17 Dose: 119 ml Documented by: [id number] Ondansetron HCl (Ondansetron Inj 2 Mg/Ml 2 Ml Vial) 4 mg IV NOW STA Stop: 09/23/20 02:15 Last Admin: 09/23/20 03:17 Dose: 4 mg Documented by: [id number] Potassium Chloride (Potassium Chloride Crtab 20 Meq Tabcr) 40 meq PO NOW STA Stop: 09/23/20 01:42 Last Admin: 09/23/20 02:21 Dose: Not Given Documented by: [id number] Potassium Chloride (Potassium Chloride Crtab 20 Meq Tabcr) 40 meq PO NOW STA Stop: 09/23/20 03:32 Last Admin: 09/23/20 04:03 Dose: Not Given Documented by: [id number] Discharge Plan Visit Data Chief Complaint: Shortness of Breath/Dyspnea Stated Complaint: SHORT OF BREATH/SYNCOPE X4 ED Provider: Karla Conner Discharge Problem: Acute hypoxemic respiratory failure due to COVID-19 Patient Disposition: Admitted As Inpatient Discharge Instructions Interventions: ED Discharge Assessment Last Done: 09/23/20 04:39
[2020-09-24] MEDS: traMADol HCL 50 MG TABLET PO PRN (04:42)
[2020-09-24 06:35] LABS: Hematocrit (blood only) 31.9 % (37-47); Immature Granulocytes # (auto) 0.01 K/uL (0.00-0.02); Immature Granulocytes % (auto) 0.2 %; Lymphocytes % (auto) 10.3 %; Mean Corpuscular Hemoglobin 25.8 pg (25-34); Mean Corpuscular Hgb Conc 31.3 g/dL (32-36); Mean Corpuscular Volume 82.2 fL (80-100); Mean Platelet Volume 9.9 fL (7.4-10.4); Monocytes % (auto) 10.3 %; Neutrophils # (auto) 3.86 K/uL (1.4-6.5); Neutrophils % (auto) 79.2 %; Platelet Count 133 K/uL (130-400); RDW Coefficient of Variation 15.1 % (11.5-14.5); RDW Standard Deviation 45.8 fL (36.4-46.3); Red Blood Count 3.88 M/uL (4.2-5.4); White Blood Count 4.87 K/uL (4.8-10.8)
[2020-09-24 07:13] LABS: Albumin Level 2.7 gm/dl (3.4-5.0); BUN Creatinine Ratio 27.5 (10-20); Calcium 7.5 mg/dl (8.5-10.1); Creatinine Clr Calc Pharmacy 62.1 ml/min; Est GFR (African American) 70.9; Est GFR (Non-African American) 61.2; Potassium 3.8 mmol/L (3.5-5.1)
[2020-09-24 07:16] LABS: Albumin Globulin Ratio 0.7 (0.9-2); Bilirubin,Total 0.5 mg/dl (0.2-1); Globulin 3.8 gm/dl (2.5-4.0); Total Protein 6.5 gm/dl (6.4-8.2)
--- NOTE | 2020-09-24 09:29 | Pulmonology Progress Note ---
Date of Service September 24, 2020 Assessment & Plan (1) Acute hypoxemic respiratory failure due to COVID-19: (2) Abnormal CT scan of lung: (3) Hypoxemia: (4) Aspiration into airway: Impression: 65-year-old female without prior history presents with hypoxemic respiratory failure and diffuse bibasilar consolidation and a positive Covid test. Her CT scan demonstrated a significantly patulous esophagus and possible aspiration would be in the differential. Her Covid test was positive. She did suffer a syncopal event and has several nondisplaced right-sided rib fractures. Recommendations: 1. Hypoxemic respiratory failure: The patient has dense bibasilar dependent consolidations. She is an excellent candidate for proning as this would improve her VQ mismatch. She has had significant improvement in her oxygen requirement with proning and would recommend continue to prone as tolerated. I would recommend that she stay prone is much as possible and return to the supine position for nursing care and meals. 2. It is unclear how much of this represents Covid pneumonia and how much represents potential atelectasis due to splinting from rib fractures as well as a possible aspiration event. Her procalcitonin was elevated so I would agree with antibiotics empirically. She has been initiated on dexamethasone, remdesivir, and consented for convalescent plasma. I suspect that her hypoxemia has more to do with atelectasis, splinting, and potential aspiration pneumonia than Covid at this time. 3. Severely dilated esophagus fluid-filled, aspiration precautions should be put in place. Patient certainly at risk for repeat aspiration given the prone positioning however the benefits would outweigh the risk currently. GI consultation at some point may be reasonable, but would hold off until the patient's respiratory status is significantly improved. 4. Acute/subacute nondisplaced right-sided rib fractures. Continue pain management. Lidocaine patch in place. Add toradol prn. May require acute pain management consult if she is unable to take a deep breath and cough. We will continue to follow this patient closely. Discussed with patient and nursing at bedside Admission and Anticipated Discharge Date Admission Date: September 23, 2020 Subjective Patient seen and examined. EMR reviewed. The patient was unable to self prone for period of time. She has had significant improvement in her oxygenation and is now been weaned to conventional oxygen at 3 to 4 L nasal cannula. She continues to have significant pain on her right side from her rib fractures. Review of Systems Review of Systems: All systems reviewed & are unremarkable except as noted in HPI & below Physical Exam Constitutional: WD/WN, vitals as above no acute distress Neck: trachea midline, no thyromegaly Respiratory: + respiratory distress and + labored breathing Auscultation: + crackles and + wheezes Cardiovascular: RRR, no murmur, no edema Gastrointestinal (Abdomen): normal bowel sounds, soft, nontender, no hepatosplenomegaly Musculoskeletal: Extremities: extremities normal to inspection Skin: no rashes, warm and dry Lymphatic: no cervical lymphadenopathy Results & Data Results & Data ([facility]) Vital Signs (Past 12 Hours) Vital Signs Temp Pulse Pulse Pulse Resp BP Pulse Ox 09/24/20 07:27 36.9 C 79 26 H 122/67 89 L 09/24/20 07:00 74 09/24/20 04:20 36.8 C 72 26 H 133/77 95 09/24/20 04:06 76 24 98 09/24/20 00:30 76 09/23/20 23:50 36.8 C 70 17 109/67 99 09/23/20 22:13 78 22 92 Laboratory Results 09/24/20 05:44 09/24/20 05:44 Diagnostic Findings No new imaging PG Care Time/CCT Total # of Minutes Spent Total Time Spent with Patient: Total time spent is greater than 50% in coordination of care (as documented) at patient's floor/unit and/or counseling patient: Coding Level of Care Code 18983 Subseq Hosp Care Lvl 3 Diagnoses Acute hypoxemic respiratory failure due to COVID-19 U07.1; J96.[address] scan of lung R91.8 Hypoxemia R09.02 Aspiration into airway T17.908A
[2020-09-24] MEDS: ENOXAPARIN INJ 40 MG/0.4 ML SYR SQ SCH (10:20)
[2020-09-24] MEDS: dexAMETHasone 6 MG in SYRINGE 0 ML IV SCH (10:20)
[2020-09-24] MEDS: PANTOprazole 40 MG TAB PO SCH (10:21)
[2020-09-24] MEDS: OXYBUTYNIN CHLORIDE XL 5 MG TABCR PO SCH ×2 (10:21→19:59)
[2020-09-24] MEDS: SIMVASTATIN 40 MG TAB PO SCH (10:22)
[2020-09-24] MEDS: lisinopril 10 MG TAB PO SCH (10:22)
[2020-09-24] MEDS: LORATADINE 10 MG TAB PO SCH (10:22)
[2020-09-24] MEDS: KETOROLAC TROMETHAMINE 15 MG/ML VIAL IV PRN ×2 (11:58→23:14)
[2020-09-24] MEDS: REMDESIVIR 100 MG in SODIUM CHLORIDE 0.9% 230 ML IV SCH (13:23)
[2020-09-24] MEDS: LIDOCAINE 5% 1 PATCH TD SCH (13:23)
--- NOTE | 2020-09-24 15:35 | Hospitalist Progress Note ---
Date of Service September 24, 2020 Assessment & Plan (1) Acute hypoxemic respiratory failure due to COVID-19: Multifactorial : Severe COVID-19 pneumonia Aspiration pneumonia -- transitioned from high flow oxygen to nasal cannula 5 L -- seems to be improved today -- continue Remdesivir, Decadron Day 2 awaiting plasma transfusion -- Unasyn Day 2 -- Incentive spirometry Mucinex -- on Lovenox 40mg SC Right Sided Rib Fractures -- CT chest: Mildly displaced fractures of the right third, 10th and 11th ribs, likely subacute. No pneumothorax. -- Lidoderm patch, PRN Toradol, PRN Tramadol Syncope possibly from orthostasis from poor p.o. intake -- Echo pending UTI -- E coli -- on Unasyn HTN -- mildly elevated -- monitor Hyperglycemia , Pre DM -- A1c 6.0 DVT prophylaxis -- Lovenox subcu -- Full code Admission and Anticipated Discharge Date Admission Date: September 23, 2020 Subjective ff up for COVID 19 pneumonia with hypoxic respiratory failure seen resting in bed, comfortable, sitting up on 5 L NC, less effort with speaking states her breathing is improved compared to yesterday has occasional cough with yellow sputum no chest pain appetite if fair no abdominal pain still has right sided rib fractures no other symptoms Review of Systems Review of Systems: All systems reviewed & are unremarkable except as noted in Subjective Physical Exam Physical Exam: General- oriented x 3, not in distress, speaks in sentences with no effort or accessory muscle use Eyes- anicteric Neck- no JVD Lungs- (+) rales at the bases- bilaterally no wheezing Heart- normal rate, regular rhythm; no murmurs Abdomen- normal bowel sounds, nondistended, soft, nontender Extremities- no pretibial edema, no calf tenderness Neuro- alert, oriented x 3; no gross focal neurologic deficits Skin- warm & dry Results & Data Results & Data ([facility]) Vital Signs (Past 12 Hours) Vital Signs Temp Pulse Pulse Pulse Resp BP Pulse Ox 09/24/20 15:14 37.1 C 79 21 146/90 H 95 09/24/20 11:15 36.7 C 72 72 19 146/84 H 95 09/24/20 07:27 36.9 C 79 26 H 122/67 89 L 09/24/20 07:00 74 09/24/20 04:20 36.8 C 72 26 H 133/77 95 09/24/20 04:06 76 24 98 Laboratory Results Laboratory Results - last 24 hr 09/23/20 09/24/20 09/24/20 11:25 05:44 05:44 WBC 4.87 RBC 3.88 L Hgb 10.0 L Hct 31.9 L MCV 82.2 MCH 25.8 MCHC 31.3 L RDW Std Deviation 45.8 RDW Coeff of Niru 15.1 H Plt Count 133 MPV 9.9 Immature Gran % (Auto) 0.2 Neut % (Auto) 79.2 Lymph % (Auto) 10.3 [place] % (Auto) 10.3 Eos % (Auto) 0.0 Baso % (Auto) 0.0 Neut # (Auto) 3.86 Lymph # (Auto) 0.50 L [place] # (Auto) 0.50 Eos # (Auto) 0.00 Baso # (Auto) 0.00 Immature Gran # (Auto) 0.01 Sodium 139 Potassium 3.8 Chloride 109 H Carbon Dioxide 24 Anion Gap 6.0 BUN 27 H Creatinine 0.96 Est Cr Clr Drug Dosing 62.1 Est GFR ( Amer) 70.9 Est GFR (Non-Af Amer) 61.2 BUN/Creatinine Ratio 27.5 H Glucose 125 H Calcium 7.5 L Total Bilirubin 0.5 AST 27 ALT 23 Alkaline Phosphatase 43 L Total Protein 6.5 Albumin 2.7 L Globulin 3.8 Albumin/Globulin Ratio 0.7 L Nasal Screen MRSA (PCR) Negative
[2020-09-24] MEDS: SODIUM CHLORIDE 0.9% 10ML FLUSH IV SCH (15:57)
[2020-09-25] MEDS: KETOROLAC TROMETHAMINE 15 MG/ML VIAL IV PRN ×2 (05:57→23:30)
[2020-09-25] MEDS: AMPICILLIN/SULBACTAM SOD 3,000 MG in 0.9 % SODIUM CHLORIDE 100 ML IV SCH ×4 (05:58→23:16)
[2020-09-25] MEDS: ACETAMINOPHEN 325 MG TAB PO PRN ×2 (05:58→14:59)
[2020-09-25] MEDS: dexAMETHasone 6 MG in SYRINGE 0 ML IV SCH (08:18)
[2020-09-25] MEDS: LORATADINE 10 MG TAB PO SCH (08:19)
[2020-09-25] MEDS: ENOXAPARIN INJ 40 MG/0.4 ML SYR SQ SCH (08:19)
[2020-09-25] MEDS: SIMVASTATIN 40 MG TAB PO SCH (08:20)
[2020-09-25] MEDS: PANTOprazole 40 MG TAB PO SCH (08:20)
[2020-09-25] MEDS: OXYBUTYNIN CHLORIDE XL 5 MG TABCR PO SCH ×2 (08:20→20:53)
[2020-09-25] MEDS: LIDOCAINE 5% 1 PATCH TD SCH (08:21)
[2020-09-25] MEDS: lisinopril 10 MG TAB PO SCH (08:22)
[2020-09-25] MEDS ORDERED: guaiFENesin 600 MG TABCR PO SCH (09:00)
[2020-09-25 10:35] LABS: Albumin Level 2.6 gm/dl (3.4-5.0); BUN Creatinine Ratio 28.3 (10-20); Calcium 7.9 mg/dl (8.5-10.1); Creatinine Clr Calc Pharmacy 64.9 ml/min; Est GFR (African American) 74.7; Est GFR (Non-African American) 64.4; Potassium 3.8 mmol/L (3.5-5.1)
[2020-09-25 10:38] LABS: Albumin Globulin Ratio 0.7 (0.9-2); Bilirubin,Total 0.5 mg/dl (0.2-1); Globulin 3.6 gm/dl (2.5-4.0); Total Protein 6.2 gm/dl (6.4-8.2)
--- NOTE | 2020-09-25 10:54 | Pulmonology Progress Note ---
Date of Service September 25, 2020 Assessment & Plan (1) Acute hypoxemic respiratory failure due to COVID-19: (2) Abnormal CT scan of lung: (3) Hypoxemia: (4) Aspiration into airway: Impression: 65-year-old female without prior history presents with hypoxemic respiratory failure and diffuse bibasilar consolidation and a positive Covid test. Her CT scan demonstrated a significantly patulous esophagus and possible aspiration would be in the differential. Her Covid test was positive. She did suffer a syncopal event and has several nondisplaced right-sided rib fractures. --Acute hypoxic respiratory failure Multifactorial Patient has left lower lobe pneumonia likely aspiration on top of COVID-19 Procalcitonin was 0.99, COVID-19 PCR positive Continue with O2 supplementation to keep oxygen saturation greater than 90% I agree with 's assessment that it is unclear how much is COVID-19 playing a role in patient's hypoxia at home which is bilateral lower lobe atelectasis and left lower aspiration pneumonia playing a role. I think once the patient's oxygenation improves discontinuation of remdesivir could be thought off. Continue with antibiotics for total of 5-7 days. --Multiple right-sided rib fractures Continue pain management Incentive spirometry Interestingly she does have atelectasis on the right side but the left lower lobe is more affected than the right. --Dilated esophagus Aspiration precaution Plan: Continue with incentive spirometry. Patient does have high risk of aspiration because of the dilated esophagus. Recommend GI consult. For the left lower lobe atelectasis I would like the patient to use flutter valve but because of the rib fracture that she has I would like to avoid it. I will add guaifenesin [id number] 600 mg twice daily. Increase it if need be. Physical therapy will be helpful to the patient. Discussed with RN. Please note the above document was generated using voice recognition software. It may contain grammatical, syntax or spelling errors.Any formal questions or concerns about the content, text or information contained within the body of this dictation should be directly addressed to the provider for clarification. Admission and Anticipated Discharge Date Admission Date: September 23, 2020 Subjective Patient seen and examined at bedside. No acute distress, no adverse events overnight. Patient was saturating 94% on 3 L nasal cannula at the time of examination. I went down to 2 L. She denied any chest pain. She did complain of cough and bringing up little bit of blood. Shortness of breath is improved. No headache, no nausea or vomiting. Patient was having breakfast at the time of examination. Review of Systems Review of Systems: All systems reviewed & are unremarkable except as noted in Subjective Physical Exam Physical Exam: Constitutional: No acute distress HEENT: EOMI, PERRLA, patient does have hoarseness of voice which is chronic as per the patient Respiratory system: Decreased air entry bilaterally, no wheeze, no rhonchi, positive crackles bilateral lower lobes CVS: S1-S2 positive Abdomen: Soft, nontender, nondistended, positive bowel sounds x4 Extremities: +2 pulses bilaterally radialis/ dorsalis pedis, no cyanosis, +1 edema bilateral lower extremity Neuro: Awake alert oriented x3 Psych: Normal mood and affect G/U: Positive Armstrong Skin: no rashes, warm and dry Lymphatic: no cervical or axillary lymphadenopathy Results & Data Results & Data ([facility]) Vital Signs (Past 12 Hours) Vital Signs Temp Pulse Pulse Pulse Resp BP Pulse Ox 09/25/20 07:35 36.6 C 63 18 151/80 H 95 09/25/20 07:04 68 18 95 09/25/20 03:15 36.8 C 67 19 119/74 96 09/24/20 23:43 61 09/24/20 23:31 36.6 C 73 21 121/66 97 09/24/20 23:26 64 20 99 09/24/20 05:44 09/25/20 09:48 PG Care Time/CCT Total # of Minutes Spent Total Time Spent with Patient: Total time spent is greater than 50% in coordination of care (as documented) at patient's floor/unit and/or counseling patient: Coding Level of Care Code 68924 Subseq Hosp Care Lvl 3 Diagnoses Acute hypoxemic respiratory failure due to COVID-19 U07.1; J96.[address] scan of lung R91.8 Hypoxemia R09.02 Aspiration into airway T17.908A
[2020-09-25] MEDS: REMDESIVIR 100 MG in SODIUM CHLORIDE 0.9% 230 ML IV SCH (13:31)
[2020-09-25] MEDS: SODIUM CHLORIDE 0.9% 10ML FLUSH IV SCH (13:31)
--- NOTE | 2020-09-25 20:19 | Hospitalist Progress Note ---
Date of Service September 25, 2020 Assessment & Plan (1) Acute hypoxemic respiratory failure due to COVID-19: Multifactorial : Severe COVID-19 pneumonia Aspiration pneumonia -- transitioned from high flow oxygen to nasal cannula 2 L --Continues to improve -- continue Remdesivir, Decadron Day 3 awaiting plasma transfusion -- Unasyn Day 3 -- Incentive spirometry Mucinex -- on Lovenox 40mg SC Right Sided Rib Fractures -- CT chest: Mildly displaced fractures of the right third, 10th and 11th ribs, likely subacute. No pneumothorax. -- Lidoderm patch, PRN Toradol, PRN Tramadol Syncope possibly from orthostasis from poor p.o. intake -- Echo pending UTI -- E coli -- on Unasyn HTN -- mildly elevated -- monitor Hyperglycemia , Pre DM -- A1c 6.0 DVT prophylaxis -- Lovenox subcu -- Full code Admission and Anticipated Discharge Date Admission Date: September 23, 2020 Subjective Follow-up for acute possible respiratory failure, COVID-19 pneumonia Seen sitting up in bed, comfortable, not in distress On 3 L of oxygen via nasal cannula States she continues to feel improved Breathing is improving Less cough Would like diet to be advanced No other symptoms Review of Systems Review of Systems: All systems reviewed & are unremarkable except as noted in Subjective Physical Exam Physical Exam: General- oriented x 3, not in distress, speaks in sentences with no effort or accessory muscle use Eyes- anicteric Neck- no JVD Lungs-mild rales bilateral bases, no wheezing Good air entry bilaterally Heart- normal rate, regular rhythm; no murmurs Abdomen- normal bowel sounds, nondistended, soft, nontender Extremities- no pretibial edema, no calf tenderness Neuro- alert, oriented x 3; no gross focal neurologic deficits Skin- warm & dry Results & Data Results & Data ([facility]) Vital Signs (Past 12 Hours) Vital Signs Temp Pulse Pulse Resp BP BP Pulse Ox 09/25/20 20:00 36.9 C 68 20 152/77 H 94 09/25/20 18:45 37.1 C 70 20 159/86 H 94 09/25/20 11:20 37.1 C 79 18 144/87 H 92 Laboratory Results Laboratory Results - last 24 hr 09/25/20 09:48 Sodium 141 Potassium 3.8 Chloride 108 H Carbon Dioxide 26 Anion Gap 6.0 BUN 26 H Creatinine 0.92 Est Cr Clr Drug Dosing 64.9 Est GFR ( Amer) 74.7 Est GFR (Non-Af Amer) 64.4 BUN/Creatinine Ratio 28.3 H Glucose 154 H Calcium 7.9 L Total Bilirubin 0.5 AST 25 ALT 25 Alkaline Phosphatase 38 L Total Protein 6.2 L Albumin 2.6 L Globulin 3.6 Albumin/Globulin Ratio 0.7 L
[2020-09-25] MEDS: guaiFENesin SUGAR FREE 200 MG/10 ML UDC PO SCH (20:54)
[2020-09-26] MEDS: AMPICILLIN/SULBACTAM SOD 3,000 MG in 0.9 % SODIUM CHLORIDE 100 ML IV SCH ×4 (06:37→23:43)
[2020-09-26 07:31] LABS: Albumin Level 2.9 gm/dl (3.4-5.0); BUN Creatinine Ratio 32.1 (10-20); Creatinine Clr Calc Pharmacy 69.7 ml/min; Est GFR (Non-African American) 69.9; Potassium 3.6 mmol/L (3.5-5.1)
[2020-09-26 07:34] LABS: Albumin Globulin Ratio 0.8 (0.9-2); Bilirubin,Total 0.6 mg/dl (0.2-1); Globulin 3.8 gm/dl (2.5-4.0); Total Protein 6.7 gm/dl (6.4-8.2)
[2020-09-26] MEDS: dexAMETHasone 6 MG in SYRINGE 0 ML IV SCH (07:44)
[2020-09-26] MEDS: guaiFENesin SUGAR FREE 200 MG/10 ML UDC PO SCH ×2 (07:44→19:37)
[2020-09-26] MEDS: OXYBUTYNIN CHLORIDE XL 5 MG TABCR PO SCH ×2 (07:45→19:37)
[2020-09-26] MEDS: PANTOprazole 40 MG TAB PO SCH (07:46)
[2020-09-26] MEDS: lisinopril 10 MG TAB PO SCH (07:46)
[2020-09-26] MEDS: LORATADINE 10 MG TAB PO SCH (07:47)
[2020-09-26] MEDS: LIDOCAINE 5% 1 PATCH TD SCH (07:47)
[2020-09-26] MEDS: SIMVASTATIN 40 MG TAB PO SCH (07:48)
[2020-09-26] MEDS: ENOXAPARIN INJ 40 MG/0.4 ML SYR SQ SCH (07:48)
--- NOTE | 2020-09-26 08:01 | Pulmonology Progress Note ---
Date of Service September 26, 2020 Assessment & Plan (1) Acute hypoxemic respiratory failure due to COVID-19: (2) Abnormal CT scan of lung: (3) Hypoxemia: (4) Aspiration into airway: Impression: 65-year-old female without prior history presents with hypoxemic respiratory failure and diffuse bibasilar consolidation and a positive Covid test. Her CT scan demonstrated a significantly patulous esophagus and possible aspiration would be in the differential. Her Covid test was positive. She did suffer a syncopal event and has several nondisplaced right-sided rib fractures. --Acute hypoxic respiratory failure Multifactorial Patient has left lower lobe pneumonia likely aspiration on top of COVID-19 Procalcitonin was 0.99, COVID-19 PCR positive Continue with O2 supplementation to keep oxygen saturation greater than 90% I agree with 's assessment that it is unclear how much is COVID-19 playing a role in patient's hypoxia at home which is bilateral lower lobe atelectasis and left lower aspiration pneumonia playing a role. I think once the patient's oxygenation improves discontinuation of remdesivir could be thought off. Continue with antibiotics for total of 5-7 days. --Multiple right-sided rib fractures Continue pain management Incentive spirometry Interestingly she does have atelectasis on the right side but the left lower lobe is more affected than the right. --Dilated esophagus Aspiration precaution Recommend GI evaluation Plan: Patient has made clinical improvement when it comes to her respiratory status. I personally explain her how to use incentive spirometry. Would get physical therapy on the patient and made the patient walk on room air to see if she will qualify for home O2. Discussed with RN. No further recommendations for pulmonary perspective. Will sign off. Please recall if needed Please note the above document was generated using voice recognition software. It may contain grammatical, syntax or spelling errors.Any formal questions or concerns about the content, text or information contained within the body of this dictation should be directly addressed to the provider for clarification. Admission and Anticipated Discharge Date Admission Date: September 23, 2020 Subjective Patient seen and examined at bedside. No acute distress, no adverse events overnight. Patient was saturating 92% on room air at the time of examination Denied any chest pain. Did complain of phlegm which is sometimes blood-tinged. Denies any fever or chills. No nausea or vomiting. Good appetite. Review of Systems Review of Systems: All systems reviewed & are unremarkable except as noted in Subjective Physical Exam Physical Exam: Constitutional: No acute distress HEENT: EOMI, PERRLA, patient does have hoarseness of voice which is chronic as per the patient Respiratory system: Decreased air entry bilaterally, no wheeze, no rhonchi, positive crackles bilateral lower lobes CVS: S1-S2 positive Abdomen: Soft, nontender, nondistended, positive bowel sounds x4 Extremities: +2 pulses bilaterally radialis/ dorsalis pedis, no cyanosis, +1 edema bilateral lower extremity Neuro: Awake alert oriented x3 Psych: Normal mood and affect G/U: Positive Armstrong Skin: no rashes, warm and dry Lymphatic: no cervical or axillary lymphadenopathy Results & Data Results & Data ([facility]) Vital Signs (Past 12 Hours) Vital Signs Temp Pulse Pulse Pulse Resp BP BP 09/26/20 07:19 36.7 C 64 18 164/87 H 09/26/20 03:25 37 C 63 20 135/74 09/25/20 23:14 67 09/25/20 23:08 37.1 C 69 20 149/91 H 09/25/20 23:04 37.1 C 68 20 149/91 H 09/25/20 22:34 68 160/98 H 09/25/20 22:19 71 168/92 H 09/25/20 22:01 36.9 C 65 154/100 H Pulse Ox 09/26/20 07:19 91 09/26/20 03:25 92 09/25/20 23:14 90 09/25/20 23:08 88 L 09/25/20 23:04 88 L 09/25/20 22:34 92 09/25/20 22:19 91 09/25/20 22:01 91 09/24/20 05:44 09/26/20 05:35 PG Care Time/CCT Total # of Minutes Spent Total Time Spent with Patient: Total time spent is greater than 50% in coordination of care (as documented) at patient's floor/unit and/or counseling patient: Coding Level of Care Code 26426 Subseq Hosp Care Lvl 3 Diagnoses Acute hypoxemic respiratory failure due to COVID-19 U07.1; J96.[address] scan of lung R91.8 Hypoxemia R09.02 Aspiration into airway T17.908A
[2020-09-26] MEDS: REMDESIVIR 100 MG in SODIUM CHLORIDE 0.9% 230 ML IV SCH (11:13)
[2020-09-26] MEDS: SODIUM CHLORIDE 0.9% 10ML FLUSH IV SCH (11:13)
[2020-09-26] MEDS: KETOROLAC TROMETHAMINE 15 MG/ML VIAL IV PRN (15:11)
--- NOTE | 2020-09-26 18:20 | Hospitalist Progress Note ---
Date of Service September 26, 2020 Assessment & Plan (1) Acute hypoxemic respiratory failure due to COVID-19: Multifactorial : Severe COVID-19 pneumonia Aspiration pneumonia -- transitioned from high flow oxygen, to nasal cannula, now on room air --Sputum culture: MSSA --Patient showed significant improvement through her admission -- continue Remdesivir, Decadron Day 4 given 1 unit plasma transfusion -- Unasyn Day 4 -- Incentive spirometry Mucinex -- on Lovenox 40mg SC --Hopefully discharge home tomorrow Augmentin x2 more days to complete 7-day course of treatment for aspiration pneumonia Continue Mucinex, incentive spirometry at home --Patient will need two-step exercise test prior to discharge Right Sided Rib Fractures ---Status post fall from syncope -- CT chest: Mildly displaced fractures of the right third, 10th and 11th ribs, likely subacute. No pneumothorax. -- Lidoderm patch, PRN Toradol, PRN Tramadol Continue incentive spirometry at home Syncope possibly from orthostasis -- from poor p.o. intake --CT chest with no acute pulmonary embolism -- Echo not performed due to Covid infection -- Had a 4 beat run of V. tach yesterday, asymptomatic no recurrence today --Will need outpatient cardiac monitoring Will need to be advised not to drive until primary care physician follow-up and cardiac monitoring has been performed UTI -- E coli, pansensitive -- on Unasyn will Be discharged on Augmentin as per #1 HTN -- mildly elevated --Likely from stress, steroids --Continue lisinopril, hydrochlorothiazide Hyperglycemia , Pre DM -- A1c 6.0 Outpatient follow-up DVT prophylaxis -- Lovenox subcu -- Full code Disposition Possible discharge to home tomorrow Will need a two-step exercise test prior to discharge Admission and Anticipated Discharge Date Admission Date: September 23, 2020 Subjective ff up for COVID 19 pneumonia, aspiration PNA, acute hypoxic respiratory failure seen resting in bed, comfortable, off oxygen supplement in good spirits states she feels better overall no active dyspnea, has occasional dry cough, no chest pain denies abdominal pain, nausea/vomiting no other symptoms Review of Systems Review of Systems: All systems reviewed & are unremarkable except as noted in Subjective Physical Exam Physical Exam: General- oriented x 3, not in distress, speaks in sentences with no effort or accessory muscle use Eyes- anicteric Neck- no JVD Lungs- mild rales at the bases, no wheezing Heart- normal rate, regular rhythm; no murmurs Abdomen- normal bowel sounds, nondistended, soft, nontender Extremities- no pretibial edema, no calf tenderness Neuro- alert, oriented x 3; no gross focal neurologic deficits Skin- warm & dry Results & Data Results & Data ([facility]) Vital Signs (Past 12 Hours) Vital Signs Temp Pulse Resp BP Pulse Ox 09/26/20 15:07 36.7 C 68 18 161/84 H 92 09/26/20 11:14 36.7 C 67 16 165/90 H 92 09/26/20 07:19 36.7 C 64 18 164/87 H 91 Laboratory Results Laboratory Results - last 24 hr 09/23/20 09/26/20 04:13 05:35 Sodium 141 Potassium 3.6 Chloride 109 H Carbon Dioxide 27 Anion Gap 5.0 BUN 28 H Creatinine 0.86 Est Cr Clr Drug Dosing 69.7 Est GFR ( Amer) 81.0 Est GFR (Non-Af Amer) 69.9 BUN/Creatinine Ratio 32.1 H Glucose 99 Calcium 8.0 L Total Bilirubin 0.6 AST 40 H ALT 42 Alkaline Phosphatase 46 Total Protein 6.7 Albumin 2.9 L Globulin 3.8 Albumin/Globulin Ratio 0.8 L Blood Type O Positive Antibody Screen NEGATIVE
[2020-09-26] MEDS ORDERED: hydrALAZINE HCL 20 MG/ML VIAL IV PRN (18:31)
[2020-09-26] MEDS: traMADol HCL 50 MG TABLET PO PRN (19:37)
[2020-09-27] MEDS: AMPICILLIN/SULBACTAM SOD 3,000 MG in 0.9 % SODIUM CHLORIDE 100 ML IV SCH ×2 (06:30→11:40)
[2020-09-27] MEDS: traMADol HCL 50 MG TABLET PO PRN (06:31)
[2020-09-27 06:49] LABS: Albumin Level 2.9 gm/dl (3.4-5.0); BUN Creatinine Ratio 26.3 (10-20); Calcium 8.2 mg/dl (8.5-10.1); Creatinine Clr Calc Pharmacy 65.3 ml/min; Est GFR (African American) 74.7; Est GFR (Non-African American) 64.4; Potassium 3.6 mmol/L (3.5-5.1)
[2020-09-27 06:51] LABS: Albumin Globulin Ratio 0.8 (0.9-2); Bilirubin,Total 0.6 mg/dl (0.2-1); Globulin 3.6 gm/dl (2.5-4.0); Total Protein 6.5 gm/dl (6.4-8.2)
[2020-09-27] MEDS: ENOXAPARIN INJ 40 MG/0.4 ML SYR SQ SCH (08:01)
[2020-09-27] MEDS: dexAMETHasone 6 MG in SYRINGE 0 ML IV SCH (08:01)
[2020-09-27] MEDS: LIDOCAINE 5% 1 PATCH TD SCH (08:02)
[2020-09-27] MEDS: lisinopril 10 MG TAB PO SCH (08:02)
[2020-09-27] MEDS: SIMVASTATIN 40 MG TAB PO SCH (08:02)
[2020-09-27] MEDS: OXYBUTYNIN CHLORIDE XL 5 MG TABCR PO SCH (08:02)
[2020-09-27] MEDS: PANTOprazole 40 MG TAB PO SCH (08:02)
[2020-09-27] MEDS: LORATADINE 10 MG TAB PO SCH (08:02)
[2020-09-27] MEDS: guaiFENesin SUGAR FREE 200 MG/10 ML UDC PO SCH (08:03)
[2020-09-27] MEDS ORDERED: hydroCHLOROthiazide 25 MG TAB PO SCH (09:00)
[2020-09-27] MEDS: REMDESIVIR 100 MG in SODIUM CHLORIDE 0.9% 230 ML IV SCH (12:13)
[2020-09-27] MEDS: SODIUM CHLORIDE 0.9% 10ML FLUSH IV SCH (12:13)
--- NOTE | 2020-09-27 14:03 | Discharge Summary ---
Date of Service September 27, 2020 Admission HPI Per Admitting Provider History obtained from patient and records. Medical history significant for hypertension, hyperlipidemia. 2 days history of nausea, fatigue symptoms followed by cough symptoms productive of clear sputum. Cough symptoms noted after food/water intake. Fever and chills, poor appetite. 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 Syncopal episodes today without headache causing patient to fall on her right side. Denies head trauma. Subsequent pleuritic right-sided chest pain with shortness of breath. O2 sats noted to be 80s on room air at the ER. Decadron given for COVID-19 pneumonia. Medical History as above Surgical History : Eye surgery, cholecystectomy, IUD placement Family History : Leukemia, DM Personal/Social history : Non-smoker, no EtOH intake, grocery employee Admission Exam Per Admitting Provider GENERAL: wane, ill looking, no respiratory distress SKIN: Normal color, warm HEENT: Bespectacled, pink palpebral conjunctivae, no ptosis, dry buccal mucosa, O2 mask in place NECK : Supple, no tenderness CHEST : Decreased breath sounds, occasional expiratory wheezes, minimal tenderness right chest wall HEART : RRR, no obvious murmurs ABDOMEN: Some distention, nontender EXTREMITIES : No LE swelling/tenderness, no other conspicuous deformities noted NEUROLOGIC : Coherent, no facial asymmetry, no other gross focality Principal Diagnosis Acute hypoxic respiratory failure 2/2 COVID pneumonia with possible aspiration pneumonia E coli UTI Syncope NSVT mildly displaced fractures of the 3rd, 10th and 11th right ribs s/p fall Abnormal CT scan chest--enlarged subcarinal lymph nodes-repeat CT scan recommended in 3 months Discharge Exam CONSTITUTIONAL: WNWD, vitals as above, generally well-appearing EYES: normal conjunctivae, no scleral icterus ENT: external ear and nose normal, MMM NECK: trachea midline RESPIRATORY: clear to auscultation bilaterally, no crackles, rales or wheezes, normal respiratory effort CARDIOVASCULAR: regular rate and rhythm, S1 and 2 heard without murmurs, gallops or rubs, no JVD, no peripheral edema GASTROINTESTINAL: soft, nontender, nondistended, no guarding. Nondistended MUSCULOSKELETAL: strength 5/5 throughout, head is normocephalic and atraumatic, ambulatory. SKIN: warm and dry,large area of ecchymosis on upper right arm. NEUROLOGIC: No facial palsy, no dysarthria. CN 2-12 grossly intact, no sensory deficit, normal cognition, normal speech, no gross focal deficits. PSYCHIATRIC: alert cooperative and oriented to person, place and time. At time of discharge she was mentating and ambulating at baseline and tolerating PO. She was oxygenating well on room and and was hemodynamically stable and afebrile. She was sent home in stable condition with close primary care follow- up recommended. Discharge Data Allergies Allergy/AdvReac Type Severity Reaction Status Date / Time No Known Allergies Allergy Unknown Verified 09/23/20 02:22 Consultations 09/23/20 03:25 ED Decision to Admit Stat 09/23/20 07:22 Consult Pulmonology Routine Ordered Studies [facility], [phone] CT Scan Report Patient: MICHAEL MURILLO [facility] Date: 09/23/20MR#: [id number]: [id number] DRAcct ID:[id number]: Date: [address] [place] [address] Zip: [place] [id number]: [id number]: 2SSex: FRoom/Bed: [id number] Phy: Oliver Cummings MDDiagnosis: RESP FAILURE, COVIDPri Phy: Sonny Causey III, MDService Date: 09/23/20Fa Phy:Interpreting Phy: Dean Vincent [facility] Phy: Rajinder Blum MD Ordering Phy: Karla Conner M.D. cc: ~ CT ANGIOGRAPHY OF THE CHEST, PULMONARY EMBOLUS PROTOCOL CLINICAL HISTORY: Hypoxia. Left-sided chest pain. Evaluate for pulmonary embolus. COMPARISON STUDY: Chest radiograph September 23, 2020 and April 18, 2011. TECHNIQUE: Following IV administration of 119 mL of Optiray-320, helical axial images of the chest were obtained utilizing the pulmonary embolus protocol. Maximal intensity projections and sagittal and coronal reformats were viewed on an independent 3D workstation. IV contrast was administered without complication. Automated exposure control was utilized for the study. A dose lowering technique was utilized adhering to the principles of ALARA. CT DOSE: 459.05 mGycm FINDINGS: No pulmonary emboli are identified. There is no thoracic aortic dissection. Mild cardiomegaly is noted. Mildly enlarged subcarinal lymph node is noted. There is no pneumothorax. There are trace bilateral pleural effusions. Extensive secretions within the left mainstem bronchus and left lower lobe segmental bronchi are noted. There is extensive left lower lobe consolidation. There is moderate right lower lobe consolidation. Left lung volume loss is noted. Mild interlobular septal thickening within the right lung is noted. There may be relative oligemia of the left lung. Central pulmonary arteries are mildly dilated. Note is made of mildly displaced fractures of the anterior right third rib and the posterior right 10th and 11th ribs. These fractures are probably subacute. A small hiatal hernia is present. Note is made of a partially visualized prominent gastrohepatic ligament lymph node. IMPRESSION: 1. No pulmonary emboli identified. 2. Extensive secretions within the distal left mainstem bronchus and throughout the segmental bronchi of the left lower lobe. Extensive left lower lobe and moderate right lower lobe consolidation. The findings may reflect aspiration pneumonitis or pneumonia. Left lung volume loss. Trace bilateral pleural effusions. 3. Mildly displaced fractures of the right third, 10th and 11th ribs, likely subacute. No pneumothorax. 4. Mildly enlarged subcarinal lymph node. This may be reactive however, a follow up chest CT in 3 months is recommended. ACT 112: Negative or not required by law. Electronically signed by: Dean Vincent M.D. 09/23/2020 8:45 AM Dictated: 09/23/20 0831Transcribed: 09/23/20 0839 Hospital Course (1) Acute hypoxemic respiratory failure due to COVID-19: Multifactorial : Severe COVID-19 pneumonia Aspiration pneumonia -- transitioned from high flow oxygen, to nasal cannula, now on room air --Sputum culture: MSSA --Patient showed significant improvement through her admission -- continue Remdesivir, Decadron Day 4 given 1 unit plasma transfusion -- Unasyn with transition to Augmentin Right Sided Rib Fractures ---Status post fall from syncope -- CT chest: Mildly displaced fractures of the right third, 10th and 11th ribs, likely subacute. No pneumothorax. -- Lidoderm patch, PRN Toradol, PRN Tramadol Continue incentive spirometry at home Syncope possibly from orthostasis -- from poor p.o. intake --CT chest with no acute pulmonary embolism -- Echo not performed due to Covid infection -- Had a 4 beat run of V. tach one telemetry that did not reoccur, asymptomatic UTI -- E coli, pansensitive -- on Unasyn will Be discharged on Augmentin as per #1 HTN -- mildly elevated --Likely from stress, steroids --Continue lisinopril, hydrochlorothiazide Hyperglycemia , Pre DM -- A1c 6.0 Outpatient follow-up DVT prophylaxis -- Lovenox subcu -- Full code Total Time Total Time Spent Total Time Spent (In Minutes): 60 Total Time Includes: Examination of the Patient, Discharge Planning, Medication Reconciliation and Communication With Other Providers Discharge Plan Discharge Items Patient Disposition: Home - Home Health Services Reason For Visit: RESP FAILURE, COVID Discharge Diagnosis: Acute hypoxic respiratory failure 2/2 COVID pneumonia with possible aspiration pneumonia E coli UTI Syncope NSVT mildly displaced fractures of the 3rd, 10th and 11th right ribs s/p fall Abnormal CT scan chest--enlarged subcarinal lymph nodes-repeat CT scan recommended in 3 months Condition on Discharge: Good Activity: Resume your previous activity Non-emergency contact: Primary Care Provider Call non-emergency contact if: you have any medication questions, your symptoms worsen, your pain is not controlled, your pain is worsening, your pain is unusual for you, your pain is concerning for you and you have a fever Follow-up/Referrals: Sonny Causey MD [Primary Care Provider] - (Date & Time 10/02/2020 11:00 AM Provider Sonny Causey III, MD Department [facility] PLEASE NOTE THAT THIS IS A TELEPHONE CALL APPOINTMENT. YOUR PHYSICIAN WILL CALL YOU AT THE APPOINTMENT TIME. IF YOU HAVE ANY QUESTIONS, PLEASE CALL [phone]) Diet: Regular Addtl Attending Provider Instructions: Please take all medications as instructed on discharge list below. It is recommended that you have a repeat chest xray in 4-6 weeks to ensure complete resolution of your pneumonia. This may be ordered by your primary care physician. You were diagnosed with COVID-19, otherwise known as a novel coronavirus i nfection, and should stay on home isolation until 10 days after initial symptom onset, coming off isolation only if you are free of fever for at least 24 hours and your symptoms are improving overall. https://www.cdc.gov/coronavirus/2019-ncov/hcp/duration-isolation.html Prior to admission, your loss of consciousness was attributed to your dehydrated state and poor oral intake of food in the setting of your infection. However, while admitted to the hospital, you were seen to have non-sustained ventricular tachycardia present on the monitor that did not reoccur. A follow-up with your primary care physician is warranted to order further investigation with a cardiac echocardiogram or cardiac event monitor if further investigation is thought to be needed. This should be discussed at the follow up appointment time listed above. You were found to have an abnormality on your chest CT scan while in the hospital. You have enlarged lymph nodes present, and a repeat chest CT is recommended in 3 months time. This may be ordered through your primary care physician. It was a pleasure taking care of you! Please call if you have any questions or problems. You can reach a [facility] hospitalist on duty at [facility] 24 hours a day by calling [phone]. Take care of yourself. Sylvia Palmer, DO [facility] Pending Studies at Discharge: No Stand-Alone Forms: My [facility] Medications and DC Order Prescriptions: New lidocaine 5 % Adhesive Patch,Medicated 1 patch transdermal QAM PRN (Reason: rib pain) Qty: 15 RF: 1 amoxicillin-pot clavulanate [Augmentin] 875-125 mg tablet 1 tab PO BID Qty: 4 RF: 0 tramadol 50 mg tablet 50 mg PO Q8H PRN (Reason: severe rib pain) Qty: 15 RF: 0 Continued oxybutynin chloride 10 mg tablet extended release 24hr 10 mg PO BID RF: 0 alendronate 70 mg tablet 70 mg PO WK RF: 0 simvastatin 40 mg tablet 40 mg PO DAILY RF: 0 lisinopril 30 mg tablet 30 mg PO DAILY RF: 0 hydrochlorothiazide 25 mg tablet 25 mg PO DAILY RF: 0 cholecalciferol (vitamin D3) [Vitamin D3] 50 mcg (2,000 unit) Capsule 50 mcg PO DAILY RF: 0 omeprazole 20 mg Capsule,Delayed Release(Dr/Ec) 20 mg PO DAILY RF: 0 loratadine [Claritin] 10 mg Tablet 10 mg PO DAILY RF: 0 nqznlaxbtmqh-KH-dqfactlhskc-GG 5-325-200mg(d)/ [id number](n) Tablets, Sequential 1 ea PO DIRECTED PRN (Reason: Cold Symptoms) RF: 0 Discharge Orders: Discharge Order (Routine); Ordered 09/27/20 Ordered By: Sylvia Mckeon/Other Patient Handouts: 5 Steps for Eating Healthier, A1C Admission Data Admit Date/Time: 09/23/20 04:21 Attending Provider: Sylvia Palmer Admit Provider: Rajinder Blum Primary Care Provider: Sonny Cuasey Other Providers: Rajinder Blum ; Randall Fernandes ; [facility],Home Healthcare Other Interventions: Discharge Summary Assessment (RN) Last Done: 09/27/20 15:56
== END 2020-09-27 16:59 | disposition home health service (06) | DRG 177 ==
LOC: ED 00:38 → SUATTDRO 04:21 → 2S 04:21